=== PATIENT | female | born 1985 | race African-American/Black ===

== ENCOUNTER → 2016-12-02 | Outpatient (CLI) | payer MEDICAID ==
[~2016-12-02] MED LIST: ARIP1TAB12 PO; ASPI325T PO; BUSP5TAB PO; CALC500C16 CHEW; ENOX40P SQ; ESCI20TA PO; FERR325T PO; K-PHTAB PO; LEVE500 PO; PANT40TA3 PO; PENI500T PO; [UNRECOGNIZED DRUG - OTHER] PO
== END ==
LOC: HPND 08:47
PROVIDERS: ATTEND Obstetrics & Gynecology
DX: O99.411 Diseases of the circulatory system complicating pregnancy, first trimester (principal); Z3A.00 Weeks of gestation of pregnancy not specified
CPT/HCPCS: 76813

== ENCOUNTER 2016-12-03 13:42 | Emergency (ER) | payer MEDICAID ==
[~2016-12-03] VITALS: Ht 160 cm; Wt 61.9 kg
[~2016-12-03 13:42] MED LIST changes: -ENOX40P SQ
[2016-12-03 13:49] VITALS: BP 108/77; PULSE 79; RESP 20; TEMP 98.5; O2SAT 100
[2016-12-03] MEDS ORDERED: ENOX40P SQ (13:59)
[2016-12-03] MEDS ORDERED: SODIUM CHLORIDE 0.9% FLUSH 10 ML FLUSH IVF PRN (14:30)
[2016-12-03] MEDS ORDERED: SODIUM CHLOR 0.9% 1000 ML INJ 1,000 ML IV ONE (14:30)
--- NOTE | 2016-12-03 14:49 | PD ---
HPI Chief Complaint: Related Problem Time Seen by Provider: 14:22 Travel History International Travel<30 days: No Contact w/Intl Traveler<30days: No Traveled to known affect area: No History of Present Illness HPI Patient is a 31 year old female who is 13 weeks , presents to ER with c/ o of abdominal cramping and dizzyness. Reports that symptoms began this morning and has been persistent. Reports that she did follow up with her software maintenance engineer yesterday: Dr. Bower yesterday and did have a formal ultrasound which showed a normal IUP. Reports no vaginal bleeding or discharge. Reports no nausea or vomiting. Reports no fever/chills. No other c/o. Reports decreased fluid intake as she reports only drinking 2 glasses of water PFSH Past Medical History Hx Anticoagulant Therapy: Yes (LOVENOX) Asthma: No Autoimmune Disease: No Blood Disorders: No Bipolar Disorder: Yes Anxiety: Yes Depression: Yes Heart Rhythm Problems: No Cancer: No Cardiovascular Problems: Yes (VALVE REPLACEMENT 2013) High Cholesterol: No Chemotherapy: No Chest Pain: No Congestive Heart Failure: No COPD: No Cerebrovascular Accident: Yes (TIA) Diabetes: No Diminished Hearing: No Endocrine: No Gastrointestinal Disorders: Yes GERD: Yes Genitourinary: No Hepatitis: Yes (hep C) Immune Disorder: No Implanted Vascular Access Dvce: No Musculoskeletal: No Neurologic: Yes Psychiatric: No Reproductive: No Respiratory: No Immunizations Current: Yes Radiation Therapy: No Seizures: Yes (R/T DRUG USE) Sleep Apnea: No Thyroid Disease: No ?: : 1 Para: 1 Past Surgical History Abdominal Surgery: No AICD: No Arteriovenous Shunt: No Cardiac Surgery: Yes (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 ) Ear Surgery: No Endocrine Surgery: No Eye Surgery: No Genitourinary Surgery: No Gynecologic Surgery: No Insulin Pump: No Joint Replacement: No Neurologic Surgery: No Oral Surgery: No Pacemaker: No Thoracic Surgery: No Other Surgery: Yes (CYST REMOVED RIGHT BREAST AGE 14) Social History Alcohol Use: No (DENIES) Tobacco Use: No (FORMER) Substance Use: No (FORMER COCAINE, DILAUDID, POLYSUBSTANCE, HERION ) Allergies-Medications (Allergen,Severity, Reaction): Coded Allergies: No Known Allergies (Verified , 12/03/16) Reported Meds & Prescriptions Reported Meds & Active Scripts Active Reported Lovenox Inj (Enoxaparin Sodium) 40 Mg/0.4 Ml Syr 40 Mg SQ DAILY Review of Systems General / Constitutional: No: Fever Eyes: No: Visual changes HENT: No: Headaches Cardiovascular: No: Chest Pain or Discomfort Respiratory: No: Shortness of Breath Gastrointestinal: Positive: Abdominal Pain, No: Nausea, Vomiting Genitourinary: No: Dysuria Musculoskeletal: No: Pain Skin: No Rash Neurologic: Positive: Dizziness, No: Weakness Psychiatric: No: Depression Endocrine: No: Polydipsia Hematologic/Lymphatic: No: Easy Bruising Physical Exam Narrative GENERAL: NAD, nontoxic SKIN: Focused skin assessment warm/dry. HEAD: Atraumatic. Normocephalic. EYES: Pupils equal and round. No scleral icterus. No injection or drainage. ENT: No nasal bleeding or discharge. Mucous membranes pink and moist. NECK: Trachea midline. No JVD. CARDIOVASCULAR: Regular rate and rhythm. No murmur appreciated. RESPIRATORY: No accessory muscle use. Clear to auscultation. Breath sounds equal bilaterally. GASTROINTESTINAL: Abdomen soft, non-tender, nondistended. Patient with no abdominal tendnerness Pelvic US: bedside US: positive IUP, +FHT MUSCULOSKELETAL: No obvious deformities. No clubbing. No cyanosis. No edema. NEUROLOGICAL: Awake and alert. No obvious cranial nerve deficits. Motor grossly within normal limits. Normal speech. PSYCHIATRIC: Appropriate mood and affect; insight and judgment normal. Data Data Last Documented VS Vital Signs Date Time Temp Pulse Resp B/P Pulse Ox O2 Delivery O2 Flow Rate FiO2 12/03/16 15:41 83 20 96/58 100 12/03/16 13:49 98.5 Orders Beta Hcg (Quant/Titer) (12/03/16 14:28) Complete Blood Count With Diff (12/03/16 14:28) Comprehensive Metabolic Panel (12/03/16 14:28) Urinalysis - C+S If Indicated (12/03/16 14:28) Iv Access Insert/Monitor (12/03/16 14:28) Sodium Chloride 0.9% Flush (Ns Flush) (12/03/16 14:30) Ed Urine Pregnancytest Poc (12/03/16 14:28) Sodium Chlor 0.9% 1000 Ml Inj (Ns 1000 M (12/03/16 14:30) Orthostatic Vital Signs (12/03/16 14:29) Drug Screen, Random Urine (12/03/16 14:45) Labs Laboratory Tests Test 12/03/16 12/03/16 14:45 14:55 Urine Color YELLOW Urine Turbidity CLEAR Urine pH 6.0 Urine Specific [place] 1.011 Urine Protein NEG mg/dL Urine Glucose (UA) NEG mg/dL Urine Ketones NEG mg/dL Urine Occult Blood NEG Urine Nitrite NEG Urine Bilirubin NEG Urine Leukocyte Esterase SMALL Urine WBC 0-2 /hpf Urine Squamous Epithelial 0-5 /hpf Cells Microscopic Urinalysis Comment CULT NOT INDICATED Urine Opiates Screen NEG Urine Barbiturates Screen NEG Urine Amphetamines Screen NEG Urine Benzodiazepines Screen NEG Urine Cocaine Screen NEG Urine Cannabinoids Screen NEG White Blood Count 9.8 TH/MM3 Red Blood Count 4.67 MIL/MM3 Hemoglobin 12.0 GM/DL Hematocrit 35.2 % Mean Corpuscular Volume 75.4 FL Mean Corpuscular Hemoglobin 25.6 PG Mean Corpuscular Hemoglobin 34.0 % Concent Red Cell Distribution Width 14.2 % Platelet Count 160 TH/MM3 Mean Platelet Volume 10.6 FL Neutrophils (%) (Auto) 74.9 % Lymphocytes (%) (Auto) 18.3 % Monocytes (%) (Auto) 5.3 % Eosinophils (%) (Auto) 1.2 % Basophils (%) (Auto) 0.3 % Neutrophils # (Auto) 7.4 TH/MM3 Lymphocytes # (Auto) 1.8 TH/MM3 Monocytes # (Auto) 0.5 TH/MM3 Eosinophils # (Auto) 0.1 TH/MM3 Basophils # (Auto) 0.0 TH/MM3 CBC Comment DIFF FINAL Differential Comment Sodium Level 138 MEQ/L Potassium Level 3.6 MEQ/L Chloride Level 104 MEQ/L Carbon Dioxide Level 25.4 MEQ/L Anion Gap 9 MEQ/L Blood Urea Nitrogen 11 MG/DL Creatinine 0.64 MG/DL Estimat Glomerular Filtration 133 ML/MIN Rate Random Glucose 95 MG/DL Calcium Level 8.4 MG/DL Total Bilirubin 0.1 MG/DL Aspartate Amino Transf 15 U/L (AST/SGOT) Alanine Aminotransferase 30 U/L (ALT/SGPT) Alkaline Phosphatase 69 U/L Total Protein 7.1 GM/DL Albumin 3.2 GM/DL Human Chorionic Gonadotropin, 45[address] MIU/ML Quant [facility] Medical Decision Making Medical Screen Exam Complete: Yes Emergency Medical Condition: Yes Interpretation(s) Vital Signs Date Time Temp Pulse Resp B/P Pulse Ox O2 Delivery O2 Flow Rate FiO2 12/03/16 13:49 98.5 79 20 108/77 100 Differential Diagnosis Orthostatic hypotension, electrolyte abnormality, threatened miscarriage, appendicitis, cholecystitis Narrative Course Patient is a 31 year old female who presents to ER with c/o of dizziness and abdominal cramping. Patient reports that symptoms began this morning and has been persistent. Denies headaches. Denies n/v. Reports cramping to lower abdomen with no vaginal bleeding/discharge. She has followed up with her ob/ transition mgr yesterday and was told that she had a normal appearing IUP with good FHT. Bedside US performed, patient with good FHT. Plan to obtain lab work and administer IVF Laboratory Tests Test 12/03/16 12/03/16 14:45 14:55 Urine Color YELLOW (YELLW/STRAW) Urine Turbidity CLEAR (CLEAR) Urine pH 6.0 (5.0-8.5) Urine Specific [place] 1.011 (1.002-1.035) Urine Protein NEG mg/dL (NEG-TRACE) Urine Glucose (UA) NEG mg/dL (NEG) Urine Ketones NEG mg/dL (NEG) Urine Occult Blood NEG (NEG) Urine Nitrite NEG (NEG) Urine Bilirubin NEG (NEG) Urine Leukocyte Esterase SMALL (NEG) Urine WBC 0-2 /hpf (0-5) Urine Squamous Epithelial 0-5 /hpf (0-5) Cells Microscopic Urinalysis Comment CULT NOT INDICATED Urine Opiates Screen NEG (NEG) Urine Barbiturates Screen NEG (NEG) Urine Amphetamines Screen NEG (NEG) Urine Benzodiazepines Screen NEG (NEG) Urine Cocaine Screen NEG (NEG) Urine Cannabinoids Screen NEG (NEG) White Blood Count 9.8 TH/MM3 (4.0-11.0) Red Blood Count 4.67 MIL/MM3 (4.00-5.30) Hemoglobin 12.0 GM/DL (11.6-15.3) Hematocrit 35.2 % (35.0-46.0) Mean Corpuscular Volume 75.4 FL (80.0-100.0) Mean Corpuscular Hemoglobin 25.6 PG (27.0-34.0) Mean Corpuscular Hemoglobin 34.0 % Concent (32.0-36.0) Red Cell Distribution Width 14.2 % (11.6-17.2) Platelet Count 160 TH/MM3 (150-450) Mean Platelet Volume 10.6 FL (7.0-11.0) Neutrophils (%) (Auto) 74.9 % (16.0-70.0) Lymphocytes (%) (Auto) 18.3 % (9.0-44.0) Monocytes (%) (Auto) 5.3 % (0.0-8.0) Eosinophils (%) (Auto) 1.2 % (0.0-4.0) Basophils (%) (Auto) 0.3 % (0.0-2.0) Neutrophils # (Auto) 7.4 TH/MM3 (1.8-7.7) Lymphocytes # (Auto) 1.8 TH/MM3 (1.0-4.8) Monocytes # (Auto) 0.5 TH/MM3 (0-0.9) Eosinophils # (Auto) 0.1 TH/MM3 (0-0.4) Basophils # (Auto) 0.0 TH/MM3 (0-0.2) CBC Comment DIFF FINAL Differential Comment Sodium Level 138 MEQ/L (136-145) Potassium Level 3.6 MEQ/L (3.5-5.1) Chloride Level 104 MEQ/L (98-107) Carbon Dioxide Level 25.4 MEQ/L (21.0-32.0) Anion Gap 9 MEQ/L (5-15) Blood Urea Nitrogen 11 MG/DL (7-18) Creatinine 0.64 MG/DL (0.50-1.00) Estimat Glomerular Filtration 133 ML/MIN Rate (>89) Random Glucose 95 MG/DL (74-106) Calcium Level 8.4 MG/DL (8.5-10.1) Total Bilirubin 0.1 MG/DL (0.2-1.0) Aspartate Amino Transf 15 U/L (15-37) (AST/SGOT) Alanine Aminotransferase 30 U/L (10-53) (ALT/SGPT) Alkaline Phosphatase 69 U/L (45-117) Total Protein 7.1 GM/DL (6.4-8.2) Albumin 3.2 GM/DL (3.4-5.0) Human Chorionic Gonadotropin, 139[address] MIU/ML Quant (0-5) Patient re-evaluated. Patient reports that she is feeling much better at this time. Reviewed all labs and studies with patient.patient will follow up with her software maintenance engineer and will return to ER as needed. Understands need for pelvic rest until seen and cleared by software maintenance engineer Procedures Procedure Narrative right sided external jugular IV access Line patient was placed in Trendelenburg, patient's head was rotated to the left, right EJ was cannulated with a 20 gauge IV line without difficultly. Patient tolerated procedure well Diagnosis Primary Impression: Dizziness Additional Impressions: Abdominal pain Qualified Code: R10.32 - Left lower quadrant pain Threatened Dehydration Patient Instructions: General Instructions Additional Instructions: Pelvic rest until you are seen and cleared by your COMMUNICATION LECTURER Please drink plenty of fluids Return to ER as needed Disposition: 01 DISCHARGE HOME Condition: Stable Sherice Camarena DO Dec 03, 2016 14:49 Sherice Camarena DO Dec 03, 2016 14:49
[2016-12-03 14:56] LABS: BLOOD, URINE NEG (NEG); GLUCOSE,URINE NEG (NEG); KETONE, URINE NEG (NEG); NITRITE,URINE NEG (NEG)
[2016-12-03 14:57] VITALS: BP_SYST 107; BP_SYST 112; BP_SYST 114; BP_DIAS 67; BP_DIAS 73; BP_DIAS 76; RESP 20
[2016-12-03 15:04] LABS: BARBITURATES, URINE NEG (NEG); COCAINE, URINE NEG (NEG)
[2016-12-03 15:05] LABS: AMPHETAMINE, URINE NEG (NEG)
[2016-12-03 15:07] LABS: URINE COLOR YELLOW (YELLW/STRAW)
[2016-12-03 15:08] LABS: SQUAMOUS EPITHELIAL CELL URINE 0-5 /hpf (0-5); WBC, URINE 0-2 /hpf (0-5)
[2016-12-03 15:09] LABS: COMMENT (UR) CULT NOT INDICATED; CULTURE IF INDICATED CULT NOT INDICATED
[2016-12-03 15:13] LABS: CHLORIDE 104 MEQ/L (98-107); POTASSIUM 3.6 MEQ/L (3.5-5.1); SODIUM (NA) 138 MEQ/L (136-145)
[2016-12-03 15:16] LABS: ANION GAP 9 MEQ/L (5-15); BICARBONATE 25.4 MEQ/L (21.0-32.0)
[2016-12-03 15:17] LABS: BLOOD UREA NITROGEN 11 MG/DL (7-18)
[2016-12-03 15:19] LABS: ALT (GPT) 30 U/L (10-53); AST (GOT) 15 U/L (15-37)
[2016-12-03 15:20] LABS: GLOMERULAR FILTRATION RATE 133 ML/MIN (>89)
[2016-12-03 15:21] LABS: TOTAL BILIRUBIN ADULT 0.1 MG/DL (0.2-1.0)
[2016-12-03 15:22] LABS: ALKALINE PHOSPHATASE 69 U/L (45-117)
[2016-12-03 15:33] LABS: AUTOMATED NEUTROPHIL # 7.4 TH/MM3 (1.8-7.7); BASOPHIL % 0.3 % (0.0-2.0); EOSINOPHIL # 0.1 TH/MM3 (0-0.4); EOSINOPHIL % 1.2 % (0.0-4.0); HEMATOCRIT 35.2 % (35.0-46.0); LYMPH % 18.3 % (9.0-44.0); LYMPHOCYTE # 1.8 TH/MM3 (1.0-4.8); MEAN CELL VOLUME 75.4 FL (80.0-100.0); MEAN CORPUSCULAR HEMOGLOBIN 25.6 PG (27.0-34.0); MONO % 5.3 % (0.0-8.0); NEUT % 74.9 % (16.0-70.0); PLATELET COUNT 160 TH/MM3 (150-450); RED BLOOD COUNT 4.67 MIL/MM3 (4.00-5.30); RED CELL DISTRIBUTION WIDTH 14.2 % (11.6-17.2); WHITE BLOOD COUNT 9.8 TH/MM3 (4.0-11.0)
[2016-12-03 15:38] LABS: BETA HCG QUANT 91906 MIU/ML (0-5)
[2016-12-03 15:41] VITALS: BP 96/58; PULSE 83; RESP 20; O2SAT 100
[2016-12-03 15:41] LABS: HEMO FLAGS DIFF FINAL
== END 2016-12-03 16:12 | disposition home or self-care (01) ==
LOC: PHED 13:42
DX: O26.891 Other specified pregnancy related conditions, first trimester (principal); R42 Dizziness and giddiness; R10.32 Left lower quadrant pain; O20.0 Threatened abortion; E86.0 Dehydration; Z79.01 Long term (current) use of anticoagulants; Z86.59 Personal history of other mental and behavioral disorders; Z86.79 Personal history of other diseases of the circulatory system; Z87.19 Personal history of other diseases of the digestive system; Z86.19 Personal history of other infectious and parasitic diseases; Z86.69 Personal history of other diseases of the nervous system and sense organs; Z3A.13 13 weeks gestation of pregnancy
CPT/HCPCS: 80053; 80307; 81001; 84702; 85025; 96360; 99284; J7030

== ENCOUNTER 2017-01-20 12:15 | Emergency (ER) | payer MEDICAID ==
[~2017-01-20 12:15] MED LIST changes: -ARIP1TAB12 PO; -ASPI325T PO; -BUSP5TAB PO; -CALC500C16 CHEW; +ENOX40P SQ; -ESCI20TA PO; -FERR325T PO; -K-PHTAB PO; -LEVE500 PO; -PANT40TA3 PO; -PENI500T PO; -[UNRECOGNIZED DRUG - OTHER] PO
[2017-01-20 12:17] VITALS: BP 113/76; PULSE 94; RESP 16; TEMP 98.2; O2SAT 100
--- NOTE | 2017-01-20 13:36 | PD ---
HPI Chief Complaint Passing out Date Seen: Jan 20, 2017 Travel History International Travel<30 Days: No Contact w/Intl Traveler<30Days: No Known Affected Area: No History of Present Illness HPI at 20w 0d presents with c/o passing out at work. Patient reports becoming dizzy then passing out. She reports hitting her left side on a desk. Denies abdominal trauma. Reports movement. Denies abd/pelvic pain. Denies problems this . Patient not forthcoming with history initially. Importance of sharing history d/w patient. Para: 0 : 2 History Past Medical History Narrative Medical Endocarditis Medical History: Denies Significant Hx Past Surgical History Narrative Surgical Heart surgery/valve replacement Family History Family History: Negative Social History Alcohol Use: No Tobacco Use: No Substance Abuse: No Allergies-Medications (Allergen,Severity, Reaction): Coded Allergies: No Known Allergies (Verified , 12/03/16) Home Meds Reported Medications Enoxaparin Inj (Lovenox Inj)40 Mg/0.4 Ml Syr40 Mg SQ DAILY Ref 0 12/03/16 Physical Exam Orthostatics performed- WNL Vital Signs Date Time Temp Pulse Resp B/P Pulse Ox O2 Delivery O2 Flow Rate FiO2 01/20/17 12:17 98.2 94 16 113/76 100 Narrative GENERAL: Well-nourished, well-developed patient. SKIN: Warm and dry. HEAD: Normocephalic and atraumatic. EYES: No scleral icterus. No injection or drainage. ENT: No nasal drainage noted. Mucous membranes pink. Airway patent. NECK: Supple, trachea midline. No JVD. CARDIOVASCULAR: Regular rate and rhythm without murmurs, gallops, or rubs. RESPIRATORY: Breath sounds equal bilaterally. No accessory muscle use. BREASTS: Bilateral exam showed no masses , no retractions, no nipple discharge. ABDOMEN/GI: Abdomen soft, non-tender, bowel sounds present, no rebound, no guarding Gravid to [-] weeks size Fundal Height: [-] GENITOURINARY: External Genitalia: intact and normal in appearance BUS glands: [-] Cervix: [-] Dilatation: [-] Effacement: [-] Station: [-] Presentation: [-] Membranes: [intact or ruptured] Uterine Contractions: [no contractions] FHT's: 150s Category: [-] Baseline: [-] Reactive: [-] Variability: [-] Decels: [-] EXTREMITIES: No cyanosis or edema. BACK: Nontender without obvious deformity. No CVA tenderness. NEUROLOGICAL: Awake and alert. Motor and sensory grossly within normal limits. Five out of 5 muscle strength in all muscle groups. Normal speech. Data Data Orders Complete Blood Count With Diff (01/20/17 13:28) MDM Interpretation(s) G1 at 20w, s/p syncopal episode. Narrative Course / MDM Will obtain CBC. Close f/u with OB provider. To ED for further evaluation. All questions answered. Diagnosis Diagnosis: Primary Impression: 20 weeks gestation of Additional Impression: Syncope Disposition: 01 DISCHARGE HOME Condition: Stable Tracie Drake MD Jan 20, 2017 13:36
[2017-01-20 13:44] LABS: AUTOMATED NEUTROPHIL # 8.4 TH/MM3 (1.8-7.7); BASOPHIL % 0.4 % (0.0-2.0); EOSINOPHIL # 0.1 TH/MM3 (0-0.4); EOSINOPHIL % 0.6 % (0.0-4.0); HEMATOCRIT 34.4 % (35.0-46.0); HEMO FLAGS DIFF FINAL; LYMPH % 12.8 % (9.0-44.0); LYMPHOCYTE # 1.3 TH/MM3 (1.0-4.8); MEAN CELL VOLUME 76.4 FL (80.0-100.0); MEAN CORPUSCULAR HEMOGLOBIN 26.2 PG (27.0-34.0); MEAN CORPUSCULAR HGB CONC 34.3 % (32.0-36.0); MONO % 5.1 % (0.0-8.0); NEUT % 81.1 % (16.0-70.0); PLATELET COUNT 175 TH/MM3 (150-450); RED CELL DISTRIBUTION WIDTH 15.4 % (11.6-17.2); WHITE BLOOD COUNT 10.4 TH/MM3 (4.0-11.0)
== END 2017-01-20 14:05 | disposition home or self-care (01) ==
LOC: HOBED 12:15
DX: O26.892 Other specified pregnancy related conditions, second trimester (principal); Z3A.20 20 weeks gestation of pregnancy
CPT/HCPCS: 85025; 99283

== ENCOUNTER → 2017-01-21 | Outpatient (CLI) | payer MEDICAID | LOC: HPND 07:40 | PROVIDERS: ATTEND Obstetrics & Gynecology | DX: O35.8XX0 Maternal care for other (suspected) fetal abnormality and damage, not applicable or unspecified (principal); Z36 Encounter for antenatal screening of mother | CPT/HCPCS: 76811 ==

== ENCOUNTER → 2017-02-23 | Outpatient (CLI) | payer MEDICAID | LOC: HPND 12:49 | PROVIDERS: ATTEND Obstetrics & Gynecology | DX: O99.89 Other specified diseases and conditions complicating pregnancy, childbirth and the puerperium (principal); O98.512 Other viral diseases complicating pregnancy, second trimester; Z3A.24 24 weeks gestation of pregnancy | CPT/HCPCS: 76816 ==

== ENCOUNTER 2017-03-27 11:01 | Emergency (ER) | payer MEDICAID ==
[2017-03-27 11:45] VITALS: PULSE 102
--- NOTE | 2017-03-27 11:55 | PD ---
HPI Chief Complaint Cramping and shortness of breath Date Seen: Mar 27, 2017 Travel History International Travel<30 Days: No Contact w/Intl Traveler<30Days: No History of Present Illness HPI Patient is a 31-year-old at 293/7 weeks gestation who presents today for cramping and shortness of breath. Patient states that she felt very nauseous this morning when she woke up and had several episodes of emesis. She started feeling short of breath after the emesis and her cramps intensified. She took Zofran with minimal improvement in nausea. She denies any vaginal bleeding or discharge. No gush or leaking of fluid. Positive movement. care with Dr. Bower. 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 Obstetric History Obstetric History in 2013 at term Past Surgical History Narrative Surgical mitral valve replacement with bovine valve 01/13/14 cyst removed from right breast at age 14 Family History Family History: Negative Social History Alcohol Use: No Tobacco Use: No ( 2ppd x 10 years quit in 2013) Substance Abuse: Yes (significant history of cocaine, IVDU, oxycodone use) Allergies-Medications (Allergen,Severity, Reaction): Coded Allergies: No Known Allergies (Verified , 12/03/16) Home Meds Reported Medications Enoxaparin Inj (Lovenox Inj)40 Mg/0.4 Ml Syr40 Mg SQ DAILY Ref 0 12/03/16 Review of Systems Except as stated in HPI: all other systems reviewed are Neg General / Constitutional: No: Fever, Chills Eyes: No: Blurred Vision, Visual changes HENT: No: Headaches Cardiovascular: No: Chest Pain or Discomfort Respiratory: Short of Breath, No: Cough, Wheezing Gastrointestinal: Nausea, Vomiting, Abdominal Pain, No: Diarrhea Genitourinary: Pelvic Pain, No: Dysuria, Hematuria, Discharge, Vaginal Bleeding Musculoskeletal: No: Edema Physical Exam Narrative GENERAL: Well-nourished, well-developed patient. SKIN: Warm and dry. HEAD: Normocephalic and atraumatic. EYES: No scleral icterus. No injection or drainage. ENT: No nasal drainage noted. Mucous membranes pink. Airway patent. NECK: Supple, trachea midline. No JVD. CARDIOVASCULAR: Regular rate and rhythm without murmurs, gallops, or rubs. RESPIRATORY: Breath sounds equal bilaterally. No accessory muscle use. BREASTS: Bilateral exam showed no masses , no retractions, no nipple discharge. ABDOMEN/GI: Abdomen soft, non-tender, bowel sounds present, no rebound, no guarding Gravid to 29 weeks size GENITOURINARY: External Genitalia: intact and normal in appearance BUS glands: normal Cervix: posterior Dilatation: 0 Effacement: 0 Station: -3 Presentation: vertex Membranes: intact Uterine Contractions: none FHT's: Category: I Baseline: 140 Reactive: + Variability: moderate Decels: none EXTREMITIES: No cyanosis or edema. BACK: Nontender without obvious deformity. No CVA tenderness. NEUROLOGICAL: Awake and alert. Motor and sensory grossly within normal limits. Normal speech. Data Data Vital Signs Reviewed: Yes MDM Medical Record Reviewed: Yes Narrative Course / MDM 31 year old at 29-3/7 weeks gestation. 1. IUP- Category I tracing, reassuring. 2. Cramping- will monitor for contractions, no contractions on toco at this time. Urine dip shows mod leuk est. 3. N/V- encourage PO hydration and Zofran PRN nausea dw Dr. Jeff Addendum: No contractions on monitor Patient feeling better Will discharge home. Diagnosis Diagnosis: Primary Impression: Cramping affecting , antepartum Additional Impression: 29 weeks gestation of Disposition: DISCHARGE HOME Condition: Stable Sangita Flores MD, R3 Mar 27, 2017 11:55
== END 2017-03-27 14:27 | disposition home or self-care (01) ==
LOC: HOBED 11:01
DX: O47.03 False labor before 37 completed weeks of gestation, third trimester (principal); O36.8130 Decreased fetal movements, third trimester, not applicable or unspecified; Z3A.29 29 weeks gestation of pregnancy
CPT/HCPCS: 99284

== ENCOUNTER 2017-04-03 11:26 | Emergency (ER) | payer MEDICAID ==
--- NOTE | 2017-04-03 11:53 | PD ---
HPI Chief Complaint Decreased movement Date Seen: Apr 03, 2017 Time Seen: 11:48 Travel History International Travel<30 Days: No Contact w/Intl Traveler<30Days: No Known Affected Area: No History of Present Illness HPI 31-year-old 2 para 1 at 30+ weeks gestation who comes today with complaint of decreased movement. She states she was having some nausea and vomiting yesterday but feels better today. No other symptoms. No bleeding , discharge or contractions. Weeks Gestation: 30 Para: 1 : 2 History Past Medical History Narrative Medical History of hepatitis C History of mitral valve replacement 3 years ago- currently being followed by cardiology, she reports seeing them this week History of IV drug abuse with no use for 1 year. Past Surgical History Narrative Surgical Mitral valve replacement, breast mass excision Family History Family History: Negative Social History Alcohol Use: No Tobacco Use: No Substance Abuse: No Allergies-Medications (Allergen,Severity, Reaction): Coded Allergies: No Known Allergies (Verified , 12/03/16) Home Meds Reported Medications Enoxaparin Inj (Lovenox Inj) 40 Mg/0.4 Ml Syr, 40 MG SQ DAILY for Blood Clot Prevention, SYRINGE 0 Refills 12/03/16 Review of Systems Except as stated in HPI: all other systems reviewed are Neg Physical Exam Narrative GENERAL: Well-nourished, well-developed patient. SKIN: Warm and dry. HEAD: Normocephalic and atraumatic. EYES: No scleral icterus. No injection or drainage. ENT: No nasal drainage noted. Mucous membranes pink. Airway patent. NECK: Supple, trachea midline. No JVD. ABDOMEN/GI: Abdomen soft, non-tender, bowel sounds present, no rebound, no guarding Gravid to [-] weeks size Fundal Height: [-31] GENITOURINARY: External Genitalia: intact and normal in appearance BUS glands: [-] Cervix: [-] Dilatation: [-] Effacement: [-] Station: [-] Presentation: [-] Membranes: [intact or ruptured] Uterine Contractions: [-] FHT's: Category: [-] Baseline: [-] Reactive: [yes-] Variability: [-] Decels: [-] EXTREMITIES: No cyanosis or edema. BACK: Nontender without obvious deformity. No CVA tenderness. NEUROLOGICAL: Awake and alert. Motor and sensory grossly within normal limits. Five out of 5 muscle strength in all muscle groups. Normal speech. Data Data Vital Signs Reviewed: Yes MDM Medical Record Reviewed: Yes Narrative Course / MDM Assessment: 30 week intrauterine with decreased movement and reassuring nonstress test. Plan: Follow up for routine care. Diagnosis Diagnosis: Primary Impression: Decreased movement Additional Impression: 30 weeks gestation of Disposition: 01 DISCHARGE HOME Condition: Good Elías Valera MD Apr 03, 2017 11:53
== END 2017-04-03 12:45 | disposition home or self-care (01) ==
LOC: HOBED 11:26
DX: O36.8130 Decreased fetal movements, third trimester, not applicable or unspecified (principal); Z3A.30 30 weeks gestation of pregnancy; Z86.19 Personal history of other infectious and parasitic diseases; Z95.2 Presence of prosthetic heart valve
CPT/HCPCS: 99283

== ENCOUNTER → 2017-05-21 | Outpatient (CLI) | payer MEDICAID | LOC: HPND 07:56 | PROVIDERS: ATTEND Obstetrics & Gynecology | DX: O98.513 Other viral diseases complicating pregnancy, third trimester (principal) | CPT/HCPCS: 76816 ==

== ENCOUNTER 2017-06-02 19:21 | Inpatient (IN) | payer MEDICAID ==
[~2017-06-02] VITALS: Ht 165.1 cm; Wt 67.1 kg
[2017-06-02] VITALS (36 sets, daily range): PULSE 67–105; RESP 18; TEMP 97.8
--- NOTE | 2017-06-02 20:25 | HHI.HP ---
HPI Chief Complaint Vaginal bleeding Date Seen: Jun 02, 2017 Time Seen: 20:15 Travel History International Travel<30 Days: No Contact w/Intl Traveler<30Days: No Known Affected Area: No History of Present Illness HPI The patient is 31-year-old black female [address] Bower for care she presents with vaginal bleeding like a period tonight. She is having some crampy pain, no regular contractions, heart rate tracing is reactive she's had no bleeding like this in only a little bit of brownish show recently but no gautam red blood Weeks Gestation: 39 Para: 1 : 2 History Past Medical History Narrative Medical Hepatitis C positive Obstetric History Obstetric History One vaginal delivery Past Surgical History Narrative Surgical Valve replacement secondary to endocarditis she is not on anticoagulation therapy, she does take a full strength aspirin a day Social History Narrative Social History She has a history of substance abuse that in the past and lead to endocarditis of that she is no longer using Substance Abuse: Yes Allergies-Medications (Allergen,Severity, Reaction): Coded Allergies: No Known Allergies (Verified , 12/03/16) Home Meds Reported Medications Enoxaparin Inj (Lovenox Inj) 40 Mg/0.4 Ml Syr, 40 MG SQ DAILY for Blood Clot Prevention, SYRINGE 0 Refills 12/03/16 Review of Systems General / Constitutional: No: Fever, Weight Gain, Chills, Other Eyes: No: Diploplia, Blurred Vision, Visual changes, Pain, Photophobia HENT: No: Headaches, Vertigo, Lightheadedness Cardiovascular: No: Irregular Rhythm, Chest Pain or Discomfort, Palpitations, Tachycardia, Syncope, Varicosities, Edema, Cyanosis Respiratory: No: Cough, Short of Breath, Other Gastrointestinal: No: Nausea, Vomiting, Diarrhea Genitourinary: Vaginal Bleeding, No: Decreased Urinary Output, Oliguria Musculoskeletal: No: Limited ROM, Weakness, Cramping, Edema, Pain Skin: No Rash, No Itching, No Dryness, No Lumps, No Change in Pigmentation, No Change in Nails, No Alopecia, No Lesions Neurologic: No: Weakness, Dizziness, Syncope, Focal Abnormalities, Coordination Problem, Headache, Slurred Speech, Seizures Psychiatric: No: Depression, Suicidal Ideations, Homicidal Ideation Endocrine: No: Heat Intolerance, Cold Intolerance, Polydipsia, Polyuria, Other Physical Exam Narrative GENERAL: Well-nourished, well-developed patient. SKIN: Warm and dry. HEAD: Normocephalic and atraumatic. EYES: No scleral icterus. No injection or drainage. ENT: No nasal drainage noted. Mucous membranes pink. Airway patent. NECK: Supple, trachea midline. No JVD. CARDIOVASCULAR: Regular rate and rhythm without murmurs, gallops, or rubs. RESPIRATORY: Breath sounds equal bilaterally. No accessory muscle use. BREASTS: Bilateral exam showed no masses , no retractions, no nipple discharge. ABDOMEN/GI: Abdomen soft, non-tender, bowel sounds present, no rebound, no guarding Gravid to [-39] weeks size Fundal Height: [39-] GENITOURINARY: External Genitalia: intact and normal in appearance BUS glands: [-] Cervix: post Dilatation: [1-2-] Effacement: [thick-] Station: [high-] Presentation: [vtx by US-] Membranes: [intact ] Uterine Contractions: [occasional-] FHT's: Category: [-1] Baseline: [-133] Reactive: [-yes] Variability: [mod-] Decels: [0-] EXTREMITIES: No cyanosis or edema. BACK: Nontender without obvious deformity. No CVA tenderness. NEUROLOGICAL: Awake and alert. Motor and sensory grossly within normal limits. Five out of 5 muscle strength in all muscle groups. Normal speech. Caprini VTE Risk Assessment Caprini VTE Risk Assessment: No/Low Risk (score <= 1) Caprini Risk Assessment Model Point Value = 1 Point Value = 2 Point Value = 3 Point Value = 5 Age 41-60 Minor surgery BMI > 25 kg/m2 Swollen legs Varicose veins or History of unexplained or recurrent spontaneous Oral contraceptives or hormone replacement Sepsis (< 1 month) Serious lung disease, including pneumonia (< 1 month) Abnormal pulmonary function Acute myocardial infarction Congestive heart failure (< 1 month) History of inflammatory bowel disease Medical patient at bed rest Age 61-74 Arthroscopic surgery Major open surgery (> 45 min) Laparoscopic surgery (> 45 min) Malignancy Confined to bed (> 72 hours) Immobilizing plaster cast Central venous access Age >= 75 History of VTE Family history of VTE Factor V Leiden Prothrombin [id number] Lupus anticoagulant Anticardiolipin antibodies Elevated serum homocysteine Heparin-induced thrombocytopenia Other congenital or acquired thrombophilia Stroke (< 1 month) Elective arthroplasty Hip, pelvis, or leg fracture Acute spinal cord injury (< 1 month) Prophylaxis Regimen Total Risk Factor Score Risk Level Prophylaxis Regimen 0-1 Low Early ambulation 2 Moderate Order ONE of the following: *Sequential Compression Device (SCD) *Heparin 5000 units SQ BID 3-4 Higher Order ONE of the following medications: *Heparin 5000 units SQ TID *Enoxaparin/Lovenox 40 mg SQ daily (WT < 150 kg, CrCl > 30 mL/min) *Enoxaparin/Lovenox 30 mg SQ daily (WT < 150 kg, CrCl > 10-29 mL/min) *Enoxaparin/Lovenox 30 mg SQ BID (WT < 150 kg, CrCl > 30 mL/min) AND/OR *Sequential Compression Device (SCD) 5 or more Highest Order ONE of the following medications: *Heparin 5000 units SQ TID (Preferred with Epidurals) *Enoxaparin/Lovenox 40 mg SQ daily (WT < 150 kg, CrCl > 30 mL/min) *Enoxaparin/Lovenox 30 mg SQ daily (WT < 150 kg, CrCl > 10-29 mL/min) *Enoxaparin/Lovenox 30 mg SQ BID (WT < 150 kg, CrCl > 30 mL/min) AND *Sequential Compression Device (SCD) Assessment/Plan Assessment and Plan The patient is 31-year-old black female at 39 weeks presents planning of vaginal bleeding and some abdominal cramps today. She has bleeding as being like a period and on exam there is dark blood in the vagina not a lot but enough that the worrisome and also some blood staining in the vagina and on the labia. Cervix is 1-2 thick and high vertex by ultrasound and ultrasound-guided bedside was ruled out previa fundal placenta grade 3. The patient does take a full strength aspirin a day due to her history of mitral valve replacement Impression- third trimester bleeding with previa rule out-at 39 weeks Patient with history of mitral valve replacement and daily aspirin therapy Plan to admit the patient observation. Check abruption labs and observe for any further significant bleeding and if that were to be the case would consider delivery-we'll discuss case with Dr. Bower her OB doctor Trae Jeff II, MD Jun 02, 2017 20:25
[2017-06-02] MEDS ORDERED: ONDANSETRON HCL 4 MG/2 ML VIAL IV PUSH PRN (20:30)
[2017-06-02] MEDS ORDERED: SODIUM CHLORIDE 0.9% FLUSH 10 ML FLUSH IV FLUSH PRN (20:30)
[2017-06-02] MEDS: SODIUM CHLORIDE 0.9% FLUSH 10 ML FLUSH IV FLUSH SCH (21:00)
[2017-06-02 22:16] LABS: BLOOD, URINE LARGE (NEG); COMMENT (UR) CULTURE INDICATED; CULTURE IF INDICATED CULTURE INDICATED; GLUCOSE,URINE NEG (NEG); KETONE, URINE NEG (NEG); NITRITE,URINE NEG (NEG); PH, URINE 6.5 (5.0-8.5); SQUAMOUS EPITHELIAL CELL URINE 1 /hpf (0-5); URINE COLOR YELLOW (YELLW/STRAW)
[2017-06-02 22:21] LABS: AUTOMATED NEUTROPHIL # 8.2 TH/MM3 (1.8-7.7); BASOPHIL % 0.3 % (0.0-2.0); EOSINOPHIL # 0.1 TH/MM3 (0-0.4); EOSINOPHIL % 0.6 % (0.0-4.0); HEMATOCRIT 35.4 % (35.0-46.0); HEMO FLAGS DIFF FINAL; LYMPH % 14.2 % (9.0-44.0); LYMPHOCYTE # 1.4 TH/MM3 (1.0-4.8); MEAN CELL VOLUME 78.3 FL (80.0-100.0); MEAN CORPUSCULAR HEMOGLOBIN 25.8 PG (27.0-34.0); NEUT % 79.9 % (16.0-70.0); PLATELET COUNT 207 TH/MM3 (150-450); RED BLOOD COUNT 4.53 MIL/MM3 (4.00-5.30); RED CELL DISTRIBUTION WIDTH 13.9 % (11.6-17.2); WHITE BLOOD COUNT 10.2 TH/MM3 (4.0-11.0)
[2017-06-02 22:50] LABS: ALT (GPT) 29 U/L (10-53); ANION GAP 8 MEQ/L (5-15); AST (GOT) 17 U/L (15-37); BICARBONATE 22.6 MEQ/L (21.0-32.0); BLOOD UREA NITROGEN 8 MG/DL (7-18); CHLORIDE 105 MEQ/L (98-107); GLOMERULAR FILTRATION RATE 130 ML/MIN (>89); POTASSIUM 3.6 MEQ/L (3.5-5.1); SODIUM (NA) 136 MEQ/L (136-145)
[2017-06-02 22:52] LABS: ALKALINE PHOSPHATASE 212 U/L (45-117); TOTAL BILIRUBIN ADULT 0.2 MG/DL (0.2-1.0)
[2017-06-03] VITALS (226 sets, daily range): BP systolic 87–125; BP diastolic 42–90; PULSE 42–160; RESP 16–20; TEMP 97.4–98.4
[2017-06-03] MEDS: SODIUM CHLORIDE 0.9% FLUSH 10 ML FLUSH IV FLUSH SCH (09:00)
[2017-06-03] MEDS ORDERED: LACTATED RINGER'S 1000 ML INJ 1,000 ML IV PRN (09:18)
[2017-06-03] MEDS ORDERED: AMPICILLIN INJ 2,000 MG in SODIUM CHLORIDE 0.9% INJ 100 ML IV ONE ×2 (09:30→16:30)
[2017-06-03] MEDS ORDERED: GENTAMICIN INJ 80 MG in SODIUM CHLORIDE 0.9% INJ 100 ML IV ONE (09:30)
[2017-06-03] MEDS ORDERED: LIDOCAINE HCL 1% 50 ML VIAL I-DERMAL PRN (09:30)
[2017-06-03] MEDS ORDERED: ONDANSETRON HCL 4 MG/2 ML VIAL IV PUSH PRN (09:30)
[2017-06-03] MEDS ORDERED: SODIUM CHLORID 0.9% 500 ML INJ 500 ML IV PRN (09:30)
[2017-06-03] MEDS ORDERED: CITRIC ACID-SODIUM CITRATE LIQ 30 ML UDC PO SCH (09:30)
[2017-06-03] MEDS ORDERED: LIDOCAINE HCL 1% 50 ML VIAL INFIL PRN (09:30)
[2017-06-03] MEDS ORDERED: OXYTOCIN 30 UNITS-500ML PREMIX 500 ML IV ONE ×2 (09:30→20:00)
[2017-06-03] MEDS ORDERED: MINERAL OIL 10 ML VIAL TOPICAL PRN (09:30)
[2017-06-03] MEDS ORDERED: OXYTOCIN 30 UNITS-500ML PREMIX 500 ML IV SCH ×2 (09:30→20:00)
[2017-06-03] MEDS ORDERED: SODIUM CHLOR 0.9% 1000 ML INJ 1,000 ML IV PRN (09:38)
[2017-06-03] MEDS ORDERED: GENTAMICIN 80 MG PREMIX 100 ML IV ONE (10:00)
[2017-06-03] MEDS: LACTATED RINGER'S 1000 ML INJ 1,000 ML IV SCH ×2 (10:11→16:41)
--- NOTE | 2017-06-03 11:15 | PD.LABORPN ---
Subjective Subjective pt continues to have staining overnight. denies heavy vaginal bleeding since admission. denies trauma. +FM, rare contractions. Objective Vital Signs Vital Signs Date Time Temp Pulse Resp B/P (MAP) Pulse Ox O2 Delivery O2 Flow Rate FiO2 06/03/17 10:45 80 06/03/17 10:40 77 06/03/17 10:35 83 06/03/17 10:30 78 06/03/17 10:25 77 06/03/17 10:20 87 06/03/17 10:15 77 06/03/17 10:10 78 06/03/17 10:05 84 06/03/17 10:00 76 06/03/17 09:55 80 06/03/17 09:50 73 06/03/17 09:45 76 06/03/17 09:40 76 06/03/17 09:35 93 06/03/17 09:30 86 06/03/17 09:25 91 06/03/17 09:15 93 06/03/17 09:10 78 06/03/17 09:05 77 06/03/17 09:00 84 06/03/17 08:55 83 06/03/17 08:50 83 06/03/17 08:45 89 06/03/17 08:40 72 06/03/17 08:35 72 06/03/17 08:30 80 06/03/17 08:25 72 06/03/17 08:20 73 06/03/17 08:15 67 06/03/17 08:10 72 06/03/17 08:05 71 06/03/17 08:00 69 06/03/17 07:55 75 06/03/17 07:50 74 06/03/17 07:45 67 06/03/17 07:43 18 06/03/17 07:42 97.4 67 112/69 (83) 06/03/17 07:40 71 06/03/17 07:35 70 06/03/17 07:30 67 06/03/17 07:25 55 06/03/17 07:15 69 06/03/17 07:10 74 06/03/17 07:05 64 06/03/17 07:00 67 06/03/17 06:55 66 06/03/17 06:50 64 06/03/17 06:40 67 06/03/17 06:35 64 06/03/17 06:30 69 06/03/17 06:09 16 06/03/17 06:05 65 06/03/17 06:00 63 06/03/17 05:55 66 06/03/17 05:50 63 06/03/17 05:47 62 116/76 (89) 06/03/17 05:45 61 06/03/17 05:40 60 06/03/17 05:30 42 06/03/17 05:25 46 06/03/17 05:20 56 06/03/17 05:15 64 06/03/17 05:10 69 06/03/17 05:05 65 06/03/17 05:00 69 06/03/17 04:55 66 06/03/17 04:50 69 06/03/17 04:45 71 06/03/17 04:40 66 06/03/17 04:35 65 06/03/17 04:30 68 06/03/17 04:25 60 06/03/17 04:20 67 06/03/17 04:15 74 06/03/17 04:10 72 06/03/17 04:05 68 06/03/17 04:00 66 06/03/17 03:55 69 06/03/17 03:50 64 06/03/17 03:45 66 06/03/17 03:40 68 06/03/17 03:35 74 06/03/17 03:30 67 06/03/17 03:29 98.1 16 06/03/17 03:26 68 118/73 (88) 06/03/17 03:25 47 06/03/17 03:10 49 Objective Pelvic Exam: Cervix: [-] Dilatation: [-] Effacement: [-] Station: [-] Presentation: [-] Membranes: [intact or ruptured] Uterine Contractions: [-] FHT's: Category: [-] Baseline: [-] Reactive: [-] Variability: [-] Decels: [-] Weeks Gestation: 39 Gest Age Assessed Date: Jun 02, 2017 Gest Age Assessed Time: 19:00 Pt started active labor?: No Medical induction of labor?: Yes Medical induction start date: Jun 03, 2017 Medical induction start time: 09:30 Artificial rupture of membrane: No Assessment/Plan Problem List: (1) Vaginal bleeding in ICD Codes: O46.90 - Antepartum hemorrhage, unspecified, unspecified trimester Plan: will induce labor given pt is term. no symptoms of abruption. (2) Hepatitis C ICD Codes: B19.20 - Hepatitis C virus infection Status: Chronic Plan: stable (3) S/P MVR (mitral valve replacement) ICD Codes: Z95.4 - S/P MVR (mitral valve replacement) Status: Acute Plan: will give amp and gent now and repeat in 6 hrs Nona Bower MD Jun 03, 2017 11:15
[2017-06-03] MEDS ORDERED: ePHEDrine/NS 25 MG/5 ML SYR ONE ×2 (13:55→15:43)
[2017-06-03] MEDS ORDERED: fentaNYL 2MCG-BUPIV 0.125% INJ 100 ML ONE (15:43)
[2017-06-03] MEDS ORDERED: DIPHTH/TETANUS/ACEL PERTUSSIS (BOOSTER) 0.5 ML VIAL/PFS IM ONE (16:00)
[2017-06-03] MEDS ORDERED: MEASLES, MUMPS, RUBELLA VACCINE 0.5 ML VIAL SQ ONE (16:00)
[2017-06-03] MEDS ORDERED: ePHEDrine/NS 25 MG/5 ML SYR IV PUSH PRN (18:15)
[2017-06-03] MEDS ORDERED: fentaNYL 2MCG-BUPIV 0.125% 100 ML EPIDURAL SCH (19:00)
[2017-06-03] MEDS ORDERED: DO NOT ADMINISTER ANTICOAGULANTS PRN (19:00)
[2017-06-03] MEDS ORDERED: NO SYSTEM NARCOTICS PRN (19:00)
--- NOTE | 2017-06-03 19:57 | PD.OB.DELI ---
Weeks gestation: 39 Gest age assessed date: Jun 02, 2017 Gest age assessed time: 19:00 Pt started active labor?: Yes Active labor start date: Jun 03, 2017 Active labor start time: 14:00 Medical induction of labor?: Yes Medical induction start date: Jun 03, 2017 Medical induction start time: 09:30 Artificial rupture of membrane: No Anesthesia: Epidural Episiotomy: None Vaginal Delivery: Normal Presentation: Occiput anterior Nuchal Cord: None Delayed cord clamping (45 sec): Yes Infant: Female, Single Delivery date: Jun 03, 2017 Delivery time: 19:35 One Minute : 8 Five Minute : 9 Weight: 5-13 Placenta: Spontaneous delivery, Intact, 3 vessel cord Laceration: Vaginal laceration, 1 deg (repaired 2 small lacerations at 3 and 7 o clock, repaired with 2-0 chromic) Nona Bower MD Jun 03, 2017 19:57
[2017-06-03] MEDS ORDERED: BENZOCAINE 20% TOPICAL SPRAY 60 ML CAN TOPICAL PRN (20:00)
[2017-06-03] MEDS ORDERED: ONDANSETRON ODT 4 MG TAB PO PRN (20:00)
[2017-06-03] MEDS ORDERED: DOCUSATE SODIUM 50 MG/SENNA 8.6 MG TAB PO PRN (20:00)
[2017-06-03] MEDS ORDERED: SODIUM CHLORIDE 0.9% FLUSH 10 ML FLUSH IV FLUSH PRN (20:00)
[2017-06-03] MEDS ORDERED: ZOLPIDEM TARTRATE 5 MG TAB PO PRN (20:00)
[2017-06-03] MEDS ORDERED: ALUMINUM/MAGNESIUM/SIMETH 30 ML CUP PO PRN (20:00)
[2017-06-03] MEDS ORDERED: WITCH HAZEL 50%/GLYCERIN 12.5% 40 PAD JAR TOPICAL PRN (20:00)
[2017-06-03] MEDS ORDERED: ACETAMINOPHEN 325 MG TAB PO PRN (20:00)
[2017-06-03] MEDS ORDERED: SODIUM CHLORIDE 0.9% FLUSH 10 ML FLUSH IV FLUSH SCH (21:00)
[2017-06-03] MEDS: IBUPROFEN 600 MG TAB PO PRN (23:22)
[2017-06-04] MEDS: IBUPROFEN 600 MG TAB PO PRN ×4 (05:06→20:12)
[2017-06-04] MEDS: oxyCODONE/ACETAMINOPHEN 5 MG/325 MG TAB PO PRN ×4 (05:06→20:13)
[2017-06-04 08:39] VITALS: BP 109/69; PULSE 74; RESP 18; TEMP 97.6
[2017-06-05] MEDS: IBUPROFEN 600 MG TAB PO PRN ×2 (01:24→08:09)
[2017-06-05] MEDS: oxyCODONE/ACETAMINOPHEN 5 MG/325 MG TAB PO PRN ×2 (01:24→08:06)
[2017-06-05] MEDS ORDERED: IBUP-232 PO (09:16)
--- NOTE | 2017-06-05 09:17 | HHI.DCPOC ---
Discharge Care Plan Diagnosis: (1) Vaginal bleeding in (2) S/P MVR (mitral valve replacement) (3) Hepatitis C Your Health Problems Are: Vaginal delivery Report Symptoms to Your Doctor -Temperature above 100.5 degrees -Redness, of incision or excessive or foul smelling drainage -Unusual pain or calf pain -Increased vaginal bleeding -Painful or difficulty urinating -Feelings of extreme sadness or anxiety after 2 weeks Goals to Promote Your Health * To prevent worsening of your condition and complications * To maintain your health at the optimal level Directions to Meet Your Goals Take your medications as prescribed Follow your dietary instruction Follow activity as directed Ensure plenty of rest for recovery Drink fluids for hydration Keep your appointments as scheduled Take your immunizations and boosters as scheduled If your symptoms worsen call your PCP, if no PCP go to Urgent Care Center or Emergency Room Smoking is Dangerous to Your Health. Avoid second hand smoke Call the 24-hour crisis hotline for domestic abuse at Nona Bower MD Jun 05, 2017 09:16
== END 2017-06-05 12:43 | disposition home or self-care (01) | DRG 774 ==
LOC: HOBED 19:21 → H2EA 20:30 → OBSVTOIN 06-03 09:23 → H2EA 06-03 09:39 → H1EA 06-03 22:44
PROVIDERS: ADMIT Obstetrics & Gynecology; ATTEND Obstetrics & Gynecology
PROC: 10E0XZZ Delivery of Products of Conception, External Approach (ICD-10-PCS; principal; 2017-06-03)
PROC: 0HQ9XZZ Repair Perineum Skin, External Approach (ICD-10-PCS; 2017-06-03)
PROC: 3E0P3VZ Introduction of Hormone into Female Reproductive, Percutaneous Approach (ICD-10-PCS; 2017-06-03)
PROC: 3E0R3BZ Introduction of Anesthetic Agent into Spinal Canal, Percutaneous Approach (ICD-10-PCS; 2017-06-03)
PROC: 00HU33Z Insertion of Infusion Device into Spinal Canal, Percutaneous Approach (ICD-10-PCS; 2017-06-03)
DX: O46.93 Antepartum hemorrhage, unspecified, third trimester (principal); O98.42 Viral hepatitis complicating childbirth; B19.20 Unspecified viral hepatitis C without hepatic coma; O70.0 First degree perineal laceration during delivery; Z95.2 Presence of prosthetic heart valve; Z79.82 Long term (current) use of aspirin; Z3A.39 39 weeks gestation of pregnancy; Z37.0 Single live birth
CPT/HCPCS: 76937; 80053; 80307; 81001; 85025; 85384; 85610; 85730; 87086; J0290; J1580; J2590; J3010; J7120

== ENCOUNTER 2017-08-29 15:17 | Emergency (ER) | payer MEDICAID ==
[~2017-08-29] VITALS: Ht 165.1 cm; Wt 58.0 kg
[~2017-08-29 15:17] MED LIST changes: -ENOX40P SQ; +IBUP-232 PO
[2017-08-29 15:21] VITALS: BP 132/90; PULSE 91; RESP 16; TEMP 98.2; O2SAT 100
[2017-08-29] MEDS ORDERED: ASPI-183 PO (15:34)
[2017-08-29] MEDS ORDERED: CEPH-460 PO (16:01)
[2017-08-29] MEDS ORDERED: BACT800T5 PO (16:01)
--- NOTE | 2017-08-29 16:02 | PD ---
HPI Chief Complaint: Injury Time Seen by Provider: 15:36 Travel History International Travel<30 days: No Contact w/Intl Traveler<30days: No Traveled to known affect area: No History of Present Illness HPI 32 -year-old female here with pain, swelling, redness to the left foot times one day. Patient reports that she attempted to inject IV Dilaudid into the left foot 3-4 days ago when she relapsed. She reports redness, swelling and pain today. She denies fever or chills. Symptom severity is moderate. Aggravated by palpation of the area. Slightly relieved with ice. PFSH Past Medical History Hx Anticoagulant Therapy: Yes (LOVENOX) Asthma: No Autoimmune Disease: No Blood Disorders: No Bipolar Disorder: Yes Anxiety: Yes Depression: Yes Heart Rhythm Problems: No Cancer: No Cardiovascular Problems: Yes (VALVE REPLACEMENT 2013) High Cholesterol: No Chemotherapy: No Chest Pain: No Congestive Heart Failure: No COPD: No Cerebrovascular Accident: Yes (TIA) Diabetes: No Diminished Hearing: No Endocrine: No Gastrointestinal Disorders: Yes GERD: Yes Genitourinary: No Hepatitis: Yes (hep C) Immune Disorder: No Implanted Vascular Access Dvce: No Musculoskeletal: No Neurologic: Yes Psychiatric: No Reproductive: No Respiratory: No Immunizations Current: Yes Radiation Therapy: No Seizures: Yes (R/T DRUG USE) Sleep Apnea: No Thyroid Disease: No Tetanus Vaccination: < 5 Years Influenza Vaccination: No ?: Not LMP: 08/19/2017 : 1 Para: 1 Past Surgical History Abdominal Surgery: No AICD: No Arteriovenous Shunt: No Cardiac Surgery: Yes (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 ) Ear Surgery: No Endocrine Surgery: No Eye Surgery: No Genitourinary Surgery: No Gynecologic Surgery: No Insulin Pump: No Joint Replacement: No Neurologic Surgery: No Oral Surgery: No Pacemaker: No Thoracic Surgery: No Other Surgery: Yes (CYST REMOVED RIGHT BREAST AGE 14) Social History Alcohol Use: No Tobacco Use: No Substance Use: Yes (FORMER COCAINE, DILAUDID, POLYSUBSTANCE, HERION ) Allergies-Medications (Allergen,Severity, Reaction): Coded Allergies: No Known Allergies (Verified Adverse Reaction, Unknown, 08/29/17) Reported Meds & Prescriptions Reported Meds & Active Scripts Active Reported Aspirin 325 Mg Tab 325 Mg PO DAILY Review of Systems Except as stated in HPI: all other systems reviewed are Neg General / Constitutional: No: Fever Eyes: No: Visual changes HENT: No: Headaches Cardiovascular: No: Chest Pain or Discomfort Respiratory: No: Shortness of Breath Gastrointestinal: No: Abdominal Pain Genitourinary: No: Dysuria Musculoskeletal: No: Pain Physical Exam Narrative GENERAL: Alert and well-appearing 32-year-old female. SKIN: Warm and dry. Erythema noted to the left foot dorsal aspect. No induration, fluctuance, drainage. HEAD: Normocephalic. EYES: No scleral icterus. No injection or drainage. NECK: Supple, trachea midline. CARDIOVASCULAR: Regular rate and rhythm RESPIRATORY: Breath sounds equal bilaterally. No accessory muscle use. MUSCULOSKELETAL: No cyanosis. Left foot mild/moderate swelling with erythema isolated to the lateral/dorsal aspect. 2+ dorsal pedis pulse. Normal sensation. Brisk cap refill. Data Data Last Documented VS Vital Signs Date Time Temp Pulse Resp B/P (MAP) Pulse Ox O2 Delivery O2 Flow Rate FiO2 08/29/17 15:21 98.2 91 16 132/90 (104) 100 MDM Medical Decision Making Medical Screen Exam Complete: Yes Emergency Medical Condition: Yes Differential Diagnosis Abscess, cellulitis, deep space infection Narrative Course This is a 32-year-old female who has a history of IV drug abuse and has been in remission for greater than 1 year. 4 days ago she relapsed and injected IV Dilaudid into the left foot. Today she noticed redness and swelling area and she denies fever or chills. She is nontoxic-appearing. Her exam is consistent with cellulitis possible early abscess formation. She will be prescribed Keflex and Bactrim with close follow-up in 1-2 days. She agrees to this plan. Diagnosis Primary Impression: Cellulitis of left foot Referrals: Primary Care Physician Departure Forms: Tests/Procedures, Work Release Enter return to work date: Aug 29, 2017 Special Instructions: No prolonged standing. Needs to elevate the left foot for the next 3 days. Additional Instructions: Antibiotics as prescribed. Follow-up with your doctor in 1-2 days for recheck. Return prior he developed fever, chills, increasing pain or worsening symptoms. Scripts Sulfamethoxazole-Trimethoprim (Bactrim DS) 800-160 Mg Tab 1 TAB PO BID for Infection, #20 TAB 0 Refills Prov: Angelita Ramsey 08/29/17 Cephalexin (Keflex) 500 Mg Capsule 500 MG PO Q6H for Infection for 10 Days, #40 CAP 0 Refills Prov: Angelita Ramsey 08/29/17 Disposition: 01 DISCHARGE HOME Condition: Stable Angelita Ramsey Aug 29, 2017 16:02
== END 2017-08-29 16:19 | disposition home or self-care (01) ==
LOC: PHEFT 15:17
DX: L03.116 Cellulitis of left lower limb (principal); F31.9 Bipolar disorder, unspecified; F41.9 Anxiety disorder, unspecified; B19.20 Unspecified viral hepatitis C without hepatic coma; K21.9 Gastro-esophageal reflux disease without esophagitis; Z95.2 Presence of prosthetic heart valve; Z86.73 Personal history of transient ischemic attack (TIA), and cerebral infarction without residual deficits; Z79.82 Long term (current) use of aspirin
CPT/HCPCS: 99284

== ENCOUNTER 2017-09-04 21:06 | Emergency (ER) | payer MEDICAID ==
[~2017-09-04] VITALS: Ht 165.1 cm; Wt 56.0 kg
[~2017-09-04 21:06] MED LIST changes: +ASPI-183 PO; +BACT800T5 PO; +CEPH-460 PO; -IBUP-232 PO
[2017-09-04 21:10] VITALS: BP 146/84; PULSE 98; RESP 16; TEMP 98.2; O2SAT 98
--- NOTE | 2017-09-04 21:34 | PD ---
HPI Chief Complaint: Edema Time Seen by Provider: 21:33 Travel History International Travel<30 days: No Contact w/Intl Traveler<30days: No Traveled to known affect area: No History of Present Illness HPI 32-year-old female came to the emergency room with history of left ankle swelling and tender spot. Patient is an IV drug abuser and says that she used a foot vein to inject. This was about 10 days ago. This caused redness and swelling and she was in the emergency room then. She was started on Bactrim and Keflex. She has stents x-rays of the course. She says that at this point this one spot on her ankle is tender to touch and preventing her to flex her ankle because of the pain. No history of fever or chills. Vital signs were stable. Patient has history of bacterial endocarditis in the past from IV drug abuse. She has history of MRSA. [facility] Past Medical History Narrative Medical List of her past medical, surgical, social and family history is reviewed from the nursing note. Hx Anticoagulant Therapy: Yes (LOVENOX) Asthma: No Autoimmune Disease: No Blood Disorders: No Bipolar Disorder: Yes Anxiety: Yes Depression: Yes Heart Rhythm Problems: No Cancer: No Cardiovascular Problems: Yes (Endocarditis) High Cholesterol: No Chemotherapy: No Chest Pain: No Congestive Heart Failure: No COPD: No Cerebrovascular Accident: Yes (TIA) Diabetes: No Diminished Hearing: No Endocrine: No Gastrointestinal Disorders: Yes GERD: Yes Genitourinary: No Hepatitis: Yes (hep C) Immune Disorder: No Implanted Vascular Access Dvce: No Musculoskeletal: No Neurologic: Yes Psychiatric: No Reproductive: No Respiratory: No Immunizations Current: Yes Radiation Therapy: No Seizures: Yes (R/T DRUG USE) Sleep Apnea: No Thyroid Disease: No Tetanus Vaccination: < 5 Years Influenza Vaccination: No ?: Not LMP: 08/14/2017 : 1 Para: 1 Past Surgical History Abdominal Surgery: No AICD: No Arteriovenous Shunt: No Cardiac Surgery: Yes (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 ) Ear Surgery: No Endocrine Surgery: No Eye Surgery: No Genitourinary Surgery: No Gynecologic Surgery: No Insulin Pump: No Joint Replacement: No Neurologic Surgery: No Oral Surgery: No Pacemaker: No Thoracic Surgery: No Other Surgery: Yes (CYST REMOVED RIGHT BREAST AGE 14) Social History Alcohol Use: Yes (OCC) Tobacco Use: No Substance Use: Yes (FORMER COCAINE, DILAUDID, POLYSUBSTANCE, HERION ) Allergies-Medications (Allergen,Severity, Reaction): Coded Allergies: No Known Allergies (Verified Adverse Reaction, Unknown, 09/04/17) Comments No known drug allergies. Reported Meds & Prescriptions Reported Meds & Active Scripts Active Bactrim DS (Sulfamethoxazole-Trimethoprim) 800-160 Mg Tab 1 Tab PO BID Keflex (Cephalexin) 500 Mg Capsule 500 Mg PO Q6H 10 Days Reported Aspirin 325 Mg Tab 325 Mg PO DAILY Narrative Medication List of her home medications reviewed from the nursing note. Review of Systems Except as stated in HPI: all other systems reviewed are Neg Physical Exam Narrative GENERAL: Awake, alert, mild distress SKIN: Focused skin assessment warm/dry. Left foot is swollen ankle and distal. There is a tender fluctuant swelling that's 2 cm in diameter just distal to the lateral malleolus. There is no redness or warmth of the skin HEAD: Atraumatic. Normocephalic. EYES: Pupils equal and round. No scleral icterus. No injection or drainage. ENT: No nasal bleeding or discharge. Mucous membranes pink and moist. NECK: Trachea midline. No JVD. CARDIOVASCULAR: Regular rate and rhythm. No murmur appreciated. RESPIRATORY: No accessory muscle use. Clear to auscultation. Breath sounds equal bilaterally. GASTROINTESTINAL: Abdomen soft, non-tender, nondistended. Hepatic and splenic margins not palpable. MUSCULOSKELETAL: No obvious deformities. No clubbing. No cyanosis. No edema. NEUROLOGICAL: Awake and alert. No obvious cranial nerve deficits. Motor grossly within normal limits. Normal speech. PSYCHIATRIC: Appropriate mood and affect; insight and judgment normal. Data Data Last Documented VS Vital Signs Date Time Temp Pulse Resp B/P (MAP) Pulse Ox O2 Delivery O2 Flow Rate FiO2 09/05/17 00:11 09/04/17 23:47 88 16 100 Room Air 09/04/17 21:10 98.2 Orders Orders Complete Blood Count With Diff (09/04/17 21:55) Basic Metabolic Panel (Bmp) (09/04/17 21:55) Westergren Sedimentation Rate (09/04/17 21:55) Ct Ankle W Iv Contrast (09/04/17 ) Beta Hcg (Quant/Titer) (09/04/17 21:55) ^ Saline Lock (09/04/17 21:55) Iohexol 350 Inj (Omnipaque 350 Inj) (09/04/17 23:15) Labs Laboratory Tests Test 09/04/17 22:35 White Blood Count 5.9 TH/MM3 Red Blood Count 4.88 MIL/MM3 Hemoglobin 11.9 GM/DL Hematocrit 36.3 % Mean Corpuscular Volume 74.4 FL Mean Corpuscular Hemoglobin 24.3 PG Mean Corpuscular Hemoglobin Concent 32.6 % Red Cell Distribution Width 14.3 % Platelet Count 301 TH/MM3 Mean Platelet Volume 8.8 FL Neutrophils (%) (Auto) 68.1 % Lymphocytes (%) (Auto) 25.6 % Monocytes (%) (Auto) 4.9 % Eosinophils (%) (Auto) 0.7 % Basophils (%) (Auto) 0.7 % Neutrophils # (Auto) 4.1 TH/MM3 Lymphocytes # (Auto) 1.5 TH/MM3 Monocytes # (Auto) 0.3 TH/MM3 Eosinophils # (Auto) 0.0 TH/MM3 Basophils # (Auto) 0.0 TH/MM3 CBC Comment DIFF FINAL Differential Comment Erythrocyte Sedimentation Rate 38 mm/hr Blood Urea Nitrogen 6 MG/DL Creatinine 0.98 MG/DL Random Glucose 87 MG/DL Calcium Level 9.1 MG/DL Sodium Level 136 MEQ/L Potassium Level 3.7 MEQ/L Chloride Level 102 MEQ/L Carbon Dioxide Level 26.5 MEQ/L Anion Gap 8 MEQ/L Estimat Glomerular Filtration Rate 81 ML/MIN Human Chorionic Gonadotropin, Quant LESS THAN 1 MIU/ML MDM Medical Decision Making Medical Screen Exam Complete: Yes Emergency Medical Condition: Yes Medical Record Reviewed: Yes Differential Diagnosis Abscess, septic arthritis, cellulitis Narrative Course 11:24 PM blood test results are back. Sedimentation rate is elevated but rest of the test results are within normal limit. Early waiting for the CT scan to be done and resulted. I'm interested to see if the fluid collection is connected to the ankle joint. I had done a bedside ultrasound to look at the fluid collection. Please refer to my procedure note. 12:06 AM I discussed the CAT scan finding with the patient including the fluid collection, tendinitis and this related to further significant infection from the IV drug abuse. In my opinion she should be admitted to get IV antibiotic and seen by podiatry since just I&D in the ER would not be the standard of care. Patient however said that she wants to go home since she has a 3-month- old at home that she needs to take care of and currently she has a 3-year-old with her. She understands the risk of leaving. She is in full capacity to make decisions for herself. Patient will leave AGAINST MEDICAL ADVICE. Procedures Procedure Narrative Emergency department soft-tissue/musculoskeletal ultrasound was performed with patient consent. Linear probe was used in the transverse and sagittal views in the area of interest without evidence of soft-tissue foreign bodies but there is a fluid collection noticed. EKG Prior to Arrival: No Diagnosis Primary Impression: Foot abscess, left Additional Impression: Tendinitis Disposition: DISCH W/HOME HEALTH SERVICE Condition: Serious Rayray Tabor MD Sep 04, 2017 21:34
[2017-09-04 22:38] LABS: AUTOMATED NEUTROPHIL # 4.1 TH/MM3 (1.8-7.7); BASOPHIL % 0.7 % (0.0-2.0); EOSINOPHIL % 0.7 % (0.0-4.0); HEMATOCRIT 36.3 % (35.0-46.0); HEMOGLOBIN 11.9 GM/DL (11.6-15.3); LYMPH % 25.6 % (9.0-44.0); LYMPHOCYTE # 1.5 TH/MM3 (1.0-4.8); MEAN CELL VOLUME 74.4 FL (80.0-100.0); MEAN CORPUSCULAR HEMOGLOBIN 24.3 PG (27.0-34.0); MEAN CORPUSCULAR HGB CONC 32.6 % (32.0-36.0); MEAN PLATELET VOLUME 8.8 FL (7.0-11.0); MONO % 4.9 % (0.0-8.0); MONOCYTE # 0.3 TH/MM3 (0-0.9); NEUT % 68.1 % (16.0-70.0); PLATELET COUNT 301 TH/MM3 (150-450); RED BLOOD COUNT 4.88 MIL/MM3 (4.00-5.30); RED CELL DISTRIBUTION WIDTH 14.3 % (11.6-17.2); WHITE BLOOD COUNT 5.9 TH/MM3 (4.0-11.0)
[2017-09-04 22:56] LABS: CHLORIDE 102 MEQ/L (98-107); SODIUM (NA) 136 MEQ/L (136-145)
[2017-09-04 22:58] LABS: CALCIUM 9.1 MG/DL (8.5-10.1)
[2017-09-04 22:59] LABS: BICARBONATE 26.5 MEQ/L (21.0-32.0); BLOOD UREA NITROGEN 6 MG/DL (7-18); GLUCOSE,RANDOM 87 MG/DL (74-106)
[2017-09-04 23:02] LABS: CREATININE 0.98 MG/DL (0.50-1.00); GLOMERULAR FILTRATION RATE 81 ML/MIN (>89)
[2017-09-04] MEDS ORDERED: IOHEXOL 350 MG/ML 10 ML VIAL (for RAD DIAG) IVCONTRAST ONE (23:15)
[2017-09-04 23:47] VITALS: BP 101/76; PULSE 88; RESP 16; O2SAT 100
--- NOTE | 2017-09-04 23:54 | RADRPT ---
EXAM DATE/TIME: 09/04/2017 23:19 [facility] COMPARISON: No previous studies available for comparison. INDICATIONS : Left ankle swollen, cellulitis. IV CONTRAST: 70 cc Omnipaque 350 (iohexol) IV RADIATION DOSE: 6.05 CTDIvol (mGy) MEDICAL HISTORY : Hepatitis C. IV drug use, TIA, Cellulitis SURGICAL HISTORY : Valve replacement ENCOUNTER: Initial ACUITY: 4 - 6 days PAIN SCALE: 8/10 LOCATION: Left ankle TECHNIQUE: Volumetric scanning of the ankle was performed. Using automated exposure control and adjustment of t he mA and/or kV according to patient size, radiation dose was kept as low as reasonably achievable to obtain optimal diagnostic quality images. DICOM format image data is available electronically for review and comparison. FINDINGS: BONES: No evidence of fracture. Alignment is within normal limits. JOINTS: Ankle mortise is intact. No evidence of joint narrowing or effusion. SOFT TISSUES: There is fluid in the left extensor digitorum tendon is at the level of the ankle and hindfoot. The m ore proximal fluid collection at the level of the ankle measures 4.1 x 1.7 x 1.9 cm. The more distal area of fluid at the level of the hindfoot measures 1.8 x 1.3 x 0.6 cm. These appear to be connected. This could be surrounding inflammatory change in the subcutaneous tissues around this region. CONCLUSION: Fluid collection seen around the extensor digitorum tendon. These could be very prominent findings of tendinitis. Infection cannot be ruled out in the correct clinical situation. The bony structures appear intact. Daniel Small MD on September 04, 2017 at 23:49 Board Certified Radiologist. This report was verified electronically.
== END 2017-09-05 00:14 | disposition left against medical advice (07) ==
LOC: PHED 21:06
DX: L02.612 Cutaneous abscess of left foot (principal); M77.9 Enthesopathy, unspecified; B19.20 Unspecified viral hepatitis C without hepatic coma; F31.9 Bipolar disorder, unspecified; F41.9 Anxiety disorder, unspecified; K21.9 Gastro-esophageal reflux disease without esophagitis; Z86.73 Personal history of transient ischemic attack (TIA), and cerebral infarction without residual deficits; Z95.2 Presence of prosthetic heart valve; Z86.14 Personal history of Methicillin resistant Staphylococcus aureus infection; Z79.2 Long term (current) use of antibiotics; Z79.82 Long term (current) use of aspirin
CPT/HCPCS: 73701; 80048; 84702; 85025; 85652; 99284; Q9967

== ENCOUNTER 2017-12-22 18:06 | Emergency (ER) | payer SELFPAY ==
[~2017-12-22] VITALS: Ht 165.1 cm; Wt 55.0 kg
[2017-12-22 18:10] VITALS: BP 127/77; PULSE 99; RESP 17; TEMP 97.8; O2SAT 100
[2017-12-22 18:23] VITALS: BP 124/90; PULSE 89; RESP 17; O2SAT 100
[2017-12-22] MEDS ORDERED: SODIUM CHLOR 0.9% 1000 ML INJ 1,000 ML IV SCH (18:28)
[2017-12-22] MEDS ORDERED: SODIUM CHLORIDE 0.9% FLUSH 10 ML FLUSH IV FLUSH PRN (18:30)
--- NOTE | 2017-12-22 18:37 | PD ---
HPI Chief Complaint: Pain: Acute or Chronic Time Seen by Provider: 18:17 Travel History International Travel<30 days: No Contact w/Intl Traveler<30days: No Traveled to known affect area: No History of Present Illness HPI 32-year-old female presents to the emergency department for evaluation of the left-sided abdominal pain/lower chest pain. Patient reports associated shortness of breath. Patient states she had cold symptoms that started approximately a week ago. She states those are resolving. She started with the left-sided pain on Thursday, 4 days ago. Patient denies any fevers or chills. She denies any vomiting. No diarrhea. She has history of valve replacement 2 due to endocarditis. Patient states that she last used IV drugs in July. She denies currently using IV drugs. Patient is not currently on any prescribed medications. She denies . 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 No recent surgery or travel. No hemoptysis. No leg edema. Current pain is 8/10, sharp. Moderate severity. Patient states she was following with Dr. Perez, but due to lack of insurance has not seen him since August. PFSH Past Medical History Hx Anticoagulant Therapy: Yes (LOVENOX) Asthma: No Autoimmune Disease: No Blood Disorders: No Bipolar Disorder: Yes Anxiety: Yes Depression: Yes Heart Rhythm Problems: No Cancer: No Cardiovascular Problems: Yes (Endocarditis) High Cholesterol: No Chemotherapy: No Chest Pain: No Congestive Heart Failure: No COPD: No Cerebrovascular Accident: Yes (TIA) Diabetes: No Diminished Hearing: No Endocrine: No Gastrointestinal Disorders: Yes GERD: Yes Genitourinary: No Hepatitis: Yes (hep C) Immune Disorder: No Implanted Vascular Access Dvce: No Musculoskeletal: No Neurologic: Yes Psychiatric: No Reproductive: No Respiratory: No Immunizations Current: Yes Radiation Therapy: No Seizures: Yes (R/T DRUG USE) Sleep Apnea: No Thyroid Disease: No ?: Not LMP: 11/28/17 : 1 Para: 1 Past Surgical History Abdominal Surgery: No AICD: No Arteriovenous Shunt: No Cardiac Surgery: Yes (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 ) Ear Surgery: No Endocrine Surgery: No Eye Surgery: No Genitourinary Surgery: No Gynecologic Surgery: No Insulin Pump: No Joint Replacement: No Neurologic Surgery: No Oral Surgery: No Pacemaker: No Thoracic Surgery: No Other Surgery: Yes (CYST REMOVED RIGHT BREAST AGE 14) Social History Alcohol Use: Yes (OCC) Tobacco Use: No Substance Use: Yes (FORMER COCAINE, DILAUDID, POLYSUBSTANCE, HERION, currently uses marijuana) Allergies-Medications (Allergen,Severity, Reaction): Coded Allergies: No Known Allergies (Verified Adverse Reaction, Unknown, 09/04/17) Reported Meds & Prescriptions Reported Meds & Active Scripts Active Tylenol (Acetaminophen) 325 Mg Tab 650 Mg PO Q6H PRN Reported Womens One Daily (Multiple Vitamins W/ Minerals) 27 Mg-0.4 Mg Tab 1 Tab PO DAILY Review of Systems Except as stated in HPI: all other systems reviewed are Neg Physical Exam Narrative GENERAL: Well-nourished, well-developed female patient, afebrile. SKIN: Focused skin assessment warm/dry. HEAD: Normocephalic. Atraumatic EYES: No scleral icterus. No injection or drainage. NECK: Supple, trachea midline. No JVD or lymphadenopathy. CARDIOVASCULAR: Regular rate and rhythm without murmurs, gallops, or rubs. Bilateral radial and pedal pulses are 2+. RESPIRATORY: Breath sounds equal bilaterally. No accessory muscle use. Lung sounds are clear to auscultation. GASTROINTESTINAL: Abdomen soft and nondistended. MUSCULOSKELETAL: No cyanosis, or edema. Patient has tenderness to palpation of the left lower chest. BACK: Nontender without obvious deformity. No CVA tenderness. Data Data Last Documented VS Vital Signs Date Time Temp Pulse Resp B/P (MAP) Pulse Ox O2 Delivery O2 Flow Rate FiO2 12/22/17 18:23 89 17 124/90 (101) 100 Room Air 12/22/17 18:10 97.8 Orders Orders Complete Blood Count With Diff (12/22/17 18:) Comprehensive Metabolic Panel (12/22/17 18:) Lipase (12/22/17 18:) Prothrombin Time / Inr (Pt) (12/22/17 18:) Act Partial Throm Time (Ptt) (12/22/17 18:) Urinalysis - C+S If Indicated (12/22/17 18:) Iv Access Insert/Monitor (12/22/17 18:) Ecg Monitoring (12/22/17 18:28) Oximetry (12/22/17 18:28) Sodium Chlor 0.9% 1000 Ml Inj (Ns 1000 M (12/22/17 18:28) Sodium Chloride 0.9% Flush (Ns Flush) (12/22/17 18:30) Electrocardiogram (12/22/17 18:28) Ed Urine Pregnancytest Poc (12/22/17 18:28) Creatine Kinase (Cpk) (12/22/17 18:28) Troponin I (12/22/17 18:28) Chest, Single Ap (12/22/17 ) Magnesium (Mg) (12/22/17 18:28) Beta Hcg (Quant/Titer) (12/22/17 18:59) Acetaminophen (Tylenol) (12/22/17 19:15) Us Pelvis (Ques Preg/Ectopic) (12/22/17 ) Us Pelvis (Ques Pr/Ect)W Trans (12/22/17 ) Ed Discharge Order (12/22/17 22:12) Labs Laboratory Tests Test 12/22/17 18:59 12/22/17 19:06 White Blood Count 8.7 TH/MM3 Red Blood Count 5.94 MIL/MM3 Hemoglobin 13.5 GM/DL Hematocrit 41.7 % Mean Corpuscular Volume 70.3 FL Mean Corpuscular Hemoglobin 22.8 PG Mean Corpuscular Hemoglobin Concent 32.4 % Red Cell Distribution Width 20.9 % Platelet Count 224 TH/MM3 Mean Platelet Volume 10.6 FL Neutrophils (%) (Auto) 77.2 % Lymphocytes (%) (Auto) 16.0 % Monocytes (%) (Auto) 5.9 % Eosinophils (%) (Auto) 0.5 % Basophils (%) (Auto) 0.4 % Neutrophils # (Auto) 6.7 TH/MM3 Lymphocytes # (Auto) 1.4 TH/MM3 Monocytes # (Auto) 0.5 TH/MM3 Eosinophils # (Auto) 0.0 TH/MM3 Basophils # (Auto) 0.0 TH/MM3 CBC Comment DIFF FINAL Differential Comment Prothrombin Time 10.3 SEC Prothromb Time International Ratio 1.0 RATIO Activated Partial Thromboplast Time 27.8 SEC Blood Urea Nitrogen 12 MG/DL Creatinine 1.10 MG/DL Random Glucose 58 MG/DL Total Protein 9.4 GM/DL Albumin 4.5 GM/DL Calcium Level 9.6 MG/DL Magnesium Level 2.3 MG/DL Alkaline Phosphatase 90 U/L Aspartate Amino Transf (AST/SGOT) 22 U/L Alanine Aminotransferase (ALT/SGPT) 36 U/L Total Bilirubin 0.3 MG/DL Sodium Level 139 MEQ/L Potassium Level 3.8 MEQ/L Chloride Level 105 MEQ/L Carbon Dioxide Level 24.1 MEQ/L Anion Gap 10 MEQ/L Estimat Glomerular Filtration Rate 71 ML/MIN Total Creatine Kinase 70 U/L Troponin I LESS THAN 0.02 NG/ML Lipase 146 U/L Human Chorionic Gonadotropin, Quant 35 MIU/ML Urine Color LIGHT-YELLOW Urine Turbidity CLEAR Urine pH 6.5 Urine Specific [place] 1.015 Urine Protein NEG mg/dL Urine Glucose (UA) NEG mg/dL Urine Ketones NEG mg/dL Urine Occult Blood NEG Urine Nitrite NEG Urine Bilirubin NEG Urine Urobilinogen LESS THAN 2.0 MG/DL Urine Leukocyte Esterase NEG Urine Squamous Epithelial Cells 1 /hpf Microscopic Urinalysis Comment CULT NOT INDICATED MDM Medical Decision Making Medical Screen Exam Complete: Yes Emergency Medical Condition: Yes Medical Record Reviewed: Yes Differential Diagnosis Diverticulitis versus pancreatitis versus UTI versus pyelonephritis versus ACS versus pneumonia versus pneumothorax versus PE versus endocarditis Narrative Course 32-year-old female presents to the emergency department for evaluation of left lower chest wall and left upper abdominal pain. She does have significant past medical history due to IV drug use. EKG, CBC, CMP, CK, troponin, magnesium, lipase, PTT, PT/INR, UA, urine test are ordered and pending. Patient is given normal saline 1 L IV bolus. EKG shows SR, RBB, no acute ST changes. CBC shows no acute abnormality. CMP shows no acute abnormal. CK is 70. Troponin is less than 0.02. Magnesium is 2.3. Lipase is 146. Coags are unremarkable. UA is negative. UPT is positive. Beta hCG and pelvic ultrasound are ordered due to positive test. Beta hCG is 35. Pelvic ultrasound shows no evidence of at this time due to low ECG. 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 The patient was discharged in stable condition with instructions, including return instructions and follow up instructions. 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
--- NOTE | 2017-12-22 18:58 | RADRPT ---
EXAM DATE/TIME: 12/22/2017 18:42 [facility] COMPARISON: CHEST SINGLE AP, June 08, 2016, 8:03. INDICATIONS : Short of breath. Left sided chest pain. MEDICAL HISTORY : None. SURGICAL HISTORY : CABG. Heart valve replacements. ENCOUNTER: Initial ACUITY: 1 day PAIN SCORE: 5/10 LOCATION: Bilateral chest FINDINGS: There is slight blunting of the left gastric angle with slight scarring in the lateral left base whic h appear to be stable findings. Lungs otherwise grossly clear. Aortic valve replacement present. Ster notomy wires noted. Cardiac contours are stable. CONCLUSION: Stable chest. No acute disease. Daniel Jacobson MD on December 22, 2017 at 18:55 Board Certified Radiologist. This report was verified electronically.
[2017-12-22] MEDS ORDERED: WOMETAB5 PO (19:05)
[2017-12-22] MEDS ORDERED: ACETAMINOPHEN 325 MG TAB PO ONE (19:15)
--- NOTE | 2017-12-22 19:24 | PD ---
Physical Exam Narrative I, Dr. Kim, have reviewed the advance practice practitioner's documentation and am in agreement, met with the patient face to face, made the diagnosis, and the medical decision making was done by me. *My assessment and Findings: URI vs. pneumonia vs. costochondritis 32yo well appearing female here with c/o left upper abdominal/rib pain for a few days. Pt has been having throat pain, cough, rhinorrhea. +Nausea. Denies any chest pain, fever, hemoptysis, vomiting, vaginal bleeding or discharge. Pt denies any leg swelling or pain, recent immobilization. Pt does have history of right DVT and was on lovenox, ExIVDA and endocarditis. Pt denies any IVDA recently. Pt is afebrile here. HR in the 80s and saturating at 100% on RA. Pt denies any sob to me, said she had some last night but not anymore. Do not think pt has PE. Wells criteria for PE is 1.5 which is low probability. CXR negative. Pt found out she is in the ED with positive urine . Pt did not have any abdominal tenderness on my exam. There is some tenderness on left lower rib but pt denies any trauma or fall. Pt given acetaminophen. Labs reviewed, no leukocytosis. H/H normal. Troponin negative. Lipase normal. CMP unremarkable except glucose is low at 58. Pt given juice. bHCG is only 35. UA negative. US showed no evidence of intrauterine . No mass or cystic lesions in both ovaries. Think it is too early. Will have pt follow up with OBGYN as outpatient. Pt feels better after acetaminophen. Pt tolerating PO. Return precautions given. Data Data Last Documented VS Vital Signs Date Time Temp Pulse Resp B/P (MAP) Pulse Ox O2 Delivery O2 Flow Rate FiO2 12/22/17 18:23 89 17 124/90 (101) 100 Room Air 12/22/17 18:10 97.8 Orders Orders Complete Blood Count With Diff (12/22/17 18:28) Comprehensive Metabolic Panel (12/22/17 18:28) Lipase (12/22/17 18:28) Prothrombin Time / Inr (Pt) (12/22/17 18:28) Act Partial Throm Time (Ptt) (12/22/17 18:28) Urinalysis - C+S If Indicated (12/22/17 18:28) Iv Access Insert/Monitor (12/22/17 18:28) Ecg Monitoring (12/22/17 18:28) Oximetry (12/22/17 18:28) Sodium Chlor 0.9% 1000 Ml Inj (Ns 1000 M (12/22/17 18:28) Sodium Chloride 0.9% Flush (Ns Flush) (12/22/17 18:30) Electrocardiogram (12/22/17 18:28) Ed Urine Pregnancytest Poc (12/22/17 18:28) Creatine Kinase (Cpk) (12/22/17 18:28) Troponin I (12/22/17 18:28) Chest, Single Ap (12/22/17 ) Magnesium (Mg) (12/22/17 18:28) Beta Hcg (Quant/Titer) (12/22/17 18:59) Acetaminophen (Tylenol) (12/22/17 19:15) Us Pelvis (Ques Preg/Ectopic) (12/22/17 ) Us Pelvis (Ques Pr/Ect)W Trans (12/22/17 ) Labs Laboratory Tests Test 12/22/17 18:59 12/22/17 19:06 White Blood Count 8.7 TH/MM3 Red Blood Count 5.94 MIL/MM3 Hemoglobin 13.5 GM/DL Hematocrit 41.7 % Mean Corpuscular Volume 70.3 FL Mean Corpuscular Hemoglobin 22.8 PG Mean Corpuscular Hemoglobin Concent 32.4 % Red Cell Distribution Width 20.9 % Platelet Count 224 TH/MM3 Mean Platelet Volume 10.6 FL Neutrophils (%) (Auto) 77.2 % Lymphocytes (%) (Auto) 16.0 % Monocytes (%) (Auto) 5.9 % Eosinophils (%) (Auto) 0.5 % Basophils (%) (Auto) 0.4 % Neutrophils # (Auto) 6.7 TH/MM3 Lymphocytes # (Auto) 1.4 TH/MM3 Monocytes # (Auto) 0.5 TH/MM3 Eosinophils # (Auto) 0.0 TH/MM3 Basophils # (Auto) 0.0 TH/MM3 CBC Comment DIFF FINAL Differential Comment Prothrombin Time 10.3 SEC Prothromb Time International Ratio 1.0 RATIO Activated Partial Thromboplast Time 27.8 SEC Blood Urea Nitrogen 12 MG/DL Creatinine 1.10 MG/DL Random Glucose 58 MG/DL Total Protein 9.4 GM/DL Albumin 4.5 GM/DL Calcium Level 9.6 MG/DL Magnesium Level 2.3 MG/DL Alkaline Phosphatase 90 U/L Aspartate Amino Transf (AST/SGOT) 22 U/L Alanine Aminotransferase (ALT/SGPT) 36 U/L Total Bilirubin 0.3 MG/DL Sodium Level 139 MEQ/L Potassium Level 3.8 MEQ/L Chloride Level 105 MEQ/L Carbon Dioxide Level 24.1 MEQ/L Anion Gap 10 MEQ/L Estimat Glomerular Filtration Rate 71 ML/MIN Total Creatine Kinase 70 U/L Troponin I LESS THAN 0.02 NG/ML Lipase 146 U/L Human Chorionic Gonadotropin, Quant 35 MIU/ML Urine Color LIGHT-YELLOW Urine Turbidity CLEAR Urine pH 6.5 Urine Specific [place] 1.015 Urine Protein NEG mg/dL Urine Glucose (UA) NEG mg/dL Urine Ketones NEG mg/dL Urine Occult Blood NEG Urine Nitrite NEG Urine Bilirubin NEG Urine Urobilinogen LESS THAN 2.0 MG/DL Urine Leukocyte Esterase NEG Urine Squamous Epithelial Cells 1 /hpf Microscopic Urinalysis Comment CULT NOT INDICATED MDM Supervised Visit with DEON: Yes Interpretation(s) EKG: NSR 85bpm. RBBB. No ST segment elevation. Diagnosis Primary Impression: Cough Additional Impression: Early stage of Patient Instructions: General Instructions Departure Forms: Tests/Procedures Additional Instruction: Please follow up with your OBGYN for repeat bHCG and US. Please return to the ED if symptoms worsen. Med/Other Pt SpecificInfo: Prescription(s) given Scripts Acetaminophen (Tylenol) 325 Mg Tab 650 MG PO Q6H Y for PAIN SCALE 1 TO 4, #20 TAB 0 Refills Prov: KimConnie DO 12/22/17 Disposition: 01 DISCHARGE HOME Condition: Stable Connie Kim DO December 22, 2017 19:24
[2017-12-22 19:36] LABS: BILIRUBIN, URINE NEG (NEG); BLOOD, URINE NEG (NEG); GLUCOSE,URINE NEG (NEG); KETONE, URINE NEG (NEG); NITRITE,URINE NEG (NEG); PH, URINE 6.5 (5.0-8.5); SQUAMOUS EPITHELIAL CELL URINE 1 /hpf (0-5); URINE COLOR LIGHT-YELLOW (YELLW/STRAW); URINE LEUKOCYTE ESTERASE NEG (NEG)
[2017-12-22 19:41] LABS: AUTOMATED NEUTROPHIL # 6.7 TH/MM3 (1.8-7.7); BASOPHIL % 0.4 % (0.0-2.0); EOSINOPHIL % 0.5 % (0.0-4.0); HEMATOCRIT 41.7 % (35.0-46.0); HEMOGLOBIN 13.5 GM/DL (11.6-15.3); LYMPHOCYTE # 1.4 TH/MM3 (1.0-4.8); MEAN CELL VOLUME 70.3 FL (80.0-100.0); MEAN CORPUSCULAR HEMOGLOBIN 22.8 PG (27.0-34.0); MEAN CORPUSCULAR HGB CONC 32.4 % (32.0-36.0); MEAN PLATELET VOLUME 10.6 FL (7.0-11.0); MONO % 5.9 % (0.0-8.0); MONOCYTE # 0.5 TH/MM3 (0-0.9); NEUT % 77.2 % (16.0-70.0); PLATELET COUNT 224 TH/MM3 (150-450); RED BLOOD COUNT 5.94 MIL/MM3 (4.00-5.30); RED CELL DISTRIBUTION WIDTH 20.9 % (11.6-17.2); WHITE BLOOD COUNT 8.7 TH/MM3 (4.0-11.0)
[2017-12-22 19:52] LABS: PROTHROMBIN TIME - PATIENT 10.3 SEC (9.8-11.6)
[2017-12-22 20:06] LABS: ALBUMIN 4.5 GM/DL (3.4-5.0); AST (GOT) 22 U/L (15-37); BICARBONATE 24.1 MEQ/L (21.0-32.0); BLOOD UREA NITROGEN 12 MG/DL (7-18); CALCIUM 9.6 MG/DL (8.5-10.1); CHLORIDE 105 MEQ/L (98-107); GLOMERULAR FILTRATION RATE 71 ML/MIN (>89); GLUCOSE,RANDOM 58 MG/DL (74-106); MAGNESIUM 2.3 MG/DL (1.5-2.5); SODIUM (NA) 139 MEQ/L (136-145)
[2017-12-22 20:07] LABS: ALT (GPT) 36 U/L (10-53)
[2017-12-22 20:12] LABS: ALKALINE PHOSPHATASE 90 U/L (45-117); TOTAL BILIRUBIN ADULT 0.3 MG/DL (0.2-1.0); TOTAL PROTEIN 9.4 GM/DL (6.4-8.2); TROPONIN I LESS THAN 0.02 NG/ML (0.02-0.05)
--- NOTE | 2017-12-22 21:22 | RADRPT ---
EXAM DATE/TIME: 12/22/2017 00:00 [facility] COMPARISON: No previous studies available for comparison. EXTERNAL COMPARISON : INDICATIONS : Ectopic. LAB(S): Beta-hC MEDICAL HISTORY : Gastroesophageal reflux disease. Hepatitis C. TIA. Bipolar. Substance use. SURGICAL HISTORY : Cardiac valve replacement. Cyst removed from rt breast. ENCOUNTER: Initial ACUITY: 1 day PAIN SCORE: 0/10 LOCATION: Bilateral pelvis MEASUREMENTS: UTERUS: 7.3 x 6.1 x 3.7 cm ENDOMETRIAL STRIPE: 12 mm RIGHT OVARY: 2.8 x 3.4 x 2.2 cm LEFT OVARY: 2.1 x 2.3 x 1.4 cm FREE FLUID: Yes cul de sac. CROWN RUMP LENGTH: too early = n/a WKS n/a DAYS FHR: n/a BPM COMPLETE APPROPRIATE ITEMS PRE PROCEDURE: ID x 2: Complete NameDate of BirthEducation: Nurse/Technologist explained procedure to patient/fam shen. Patient/family demonstrates understanding of procedure. FINDINGS: UTERUS: No evidence of intrauterine gestation. Prominent endometrium. Mild myometrial heterogeneity. RIGHT OVARY: Ovary contains no mass or significant cystic lesion. LEFT OVARY: Ovary contains no mass or significant cystic lesion. MISCELLANEOUS: Small volume of cul-de-sac fluid. CONCLUSION: No evidence of intrauterine gestation. Daniel Jacobson MD on December 22, 2017 at 21:16 Board Certified Radiologist. This report was verified electronically.
[2017-12-22] MEDS ORDERED: TYLE325T PO (22:12)
--- NOTE | 2017-12-23 22:29 | EKG ---
Date Performed: 12/22/2017 Time Performed: 18:37:39 PTAGE: 32 years EKG: Sinus rhythm POSSIBLE LEFT ATRIAL ENLARGEMENT INDETERMINATE AXIS RIGHT BUNDLE BRANCH BLOCK ABNORMAL ECG PREVIOUS TRACING : 06/14/2016 17.20 Since the previous tracing, no significant change noted DOCTOR: Casey Maldonado Interpretating Date/Time 12/23/2017 22:27:12
== END 2017-12-22 22:42 | disposition home or self-care (01) ==
LOC: NEPC 18:06
DX: O26.891 Other specified pregnancy related conditions, first trimester (principal); R05 Cough; R94.31 Abnormal electrocardiogram [ECG] [EKG]; F31.9 Bipolar disorder, unspecified; B19.20 Unspecified viral hepatitis C without hepatic coma; Z3A.00 Weeks of gestation of pregnancy not specified; Z95.2 Presence of prosthetic heart valve; Z86.718 Personal history of other venous thrombosis and embolism; Z86.73 Personal history of transient ischemic attack (TIA), and cerebral infarction without residual deficits
CPT/HCPCS: 71045; 76700; 76817; 80053; 81001; 82550; 83690; 83735; 84484; 84702; 84703; 85025; 85610; 85730; 93005; 99285; J7030

== ENCOUNTER 2018-06-21 19:25 | Observation (INO) ==
[2018-06-21] MEDS ORDERED: Sod Chloride 0.9% Inj 1,000 ML IV.SIG SCH ×2 (19:45→20:45)
--- NOTE | 2018-06-21 19:47 | ED ---
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 As per EMS, patient was found by her grandmother slumped over in the bathroom. Patient reports that she came home from the store and was cleaning up her 1-year-old baby - reports that the baby went outside of the bathroom but patient remained in the bathroom. Grandmother went to check up on the patient and found her slumped over in the bathroom. Reports that she was responsive but confused. Patient reports that she felt as if she had a stroke today- reports that she feels like she is back to baseline mental status. Reports that she did use drugs yesterday - she used oral dilaudid. She doesn't think that she had a seizure - reports that she has had only 2 seizures in the past - reports that they occurred when she was younger. Denies headache/dizzyness. Denies chest pain/sob. Denies abdominal pain. No other complaints at this time. Related Data Home Medications Medication Instructions Recorded Confirmed amitriptyline 25 mg PO DAILY 06/21/18 06/21/18 divalproex [Depakote] 250 mg PO BID 06/21/18 06/21/18 Allergies Allergy/AdvReac Type Severity Reaction Status Date / Time No Known Allergies Allergy Verified 06/21/18 19:36 Review of Systems ROS: all other systems reviewed are negative PMFSH History History Provided By: Patient Medical History Medical History TIA (transient ischemic attack) (Acute) Seizure (Acute) Endocarditis (Acute) Surgical History Surgical History Heart valve replaced (Acute) Social History Social History Substance History: Past History Second Hand Smoke Exposure: Yes Smoking Status: Former smoker Tobacco Type: Cigarettes How Often Do You Have a Drink Containing Alcohol: Monthly or less Recent Travel in [facility] within the Last 8 Weeks: No Recent Out of Country Travel within the Last 8 Weeks: No Exam Narrative Exam Narrative: GENERAL: mild distress SKIN: Focused skin assessment warm/dry. HEAD: Atraumatic. Normocephalic. EYES: Pupils equal and round, 2+ . No scleral icterus. No injection or drainage. ENT: No nasal bleeding or discharge. Mucous membranes pink and moist. NECK: Trachea midline. No JVD. CARDIOVASCULAR: Tachycardia. No murmur appreciated. RESPIRATORY: No accessory muscle use. Clear to auscultation. Breath sounds equal bilaterally. GASTROINTESTINAL: Abdomen soft, non-tender, nondistended. Hepatic and splenic margins not palpable. MUSCULOSKELETAL: No obvious deformities. No clubbing. No cyanosis. No edema. NEUROLOGICAL: Awake and alert. No obvious cranial nerve deficits. Motor grossly within normal limits. Normal speech. PSYCHIATRIC: Appropriate mood and affect; insight and judgment normal. Course Initial Documented Vital Signs Temperature 98.6 F 06/21/18 19:27 Pulse Rate 119 H 06/21/18 19:27 Respiratory Rate 16 06/21/18 19:27 Blood Pressure 147/101 H 06/21/18 19:27 Pulse Oximetry 94 L 06/21/18 19:27 Last Documented Vital Signs Temperature 98.6 F 06/21/18 19:27 Pulse Rate 108 H 06/21/18 21:32 Respiratory Rate 16 06/21/18 21:32 Blood Pressure 132/95 H 06/21/18 21:32 Pulse Oximetry 96 06/21/18 21:32 Medical Decision Making MDM Narrative Medical decision making narrative: During the course of the patients emergency department visit, the patients history, examination, and differential diagnosis were reviewed with the patient. The patient was placed on a hospital monitor with oximetry and frequent blood pressure monitoring. The patient had an IV access obtained and blood work sent for analysis. The patient was initially provided IVF. Patient is tachycardic with history of endocarditis - she admits to drug abuse - blood cultures were ordered. CT of head ordered as she was found unresponsive in the bathroom and does have history of TIA's/seizure. The patients laboratory studies were reviewed and remarkable for: WBC 7.5Hemoglobin 12.9, hematocrit 39.6, platelets 178 Sodium 139, potassium 3.9, BUN 14, creatinine 1.16, glucose 115 Troponin less than 0.02 CT of the head with a remote right basal ganglial infarcts, no acute intracranial abnormalities. Urine toxicology screen is negative Plan to observe overnight for syncope as patient reports that this feels exactly the same as when she was diagnosed with a TIA in the past. Patient is agreeable to observation overnight. case reviewed with Dr. Olson who accepts pt to service under obs for syncope vs tia vs seizure Medical Screen Exam Complete: Yes Emergency Medical Condition: Yes Differential Diagnosis Differential Diagnosis: endocarditis, tia, seizure Medical Records Medical records reviewed: Yes I reviewed the patient's medical records. Lab Data Lab results reviewed: Yes I reviewed the patient's lab results. Result diagrams: 06/21/18 19:30 06/21/18 19:30 POC Results POC Urine Results Negative Lab Results 06/21/18 06/21/18 06/21/18 Range/Units 19:30 19:30 19:30 WBC 7.5 (4.0-11.0) th/mm3 RBC 5.17 (4.00-5.30) mil/mm3 Hgb 12.9 (11.6-15.3) gm/dL Hct 39.6 (35.0-46.0) % MCV 76.6 L (80.0-100.0) fL MCH 24.9 L (27.0-34.0) pg MCHC 32.5 (32.0-36.0) % RDW 17.6 H (11.6-17.2) % Plt Count 178 (150-450) th/mm3 MPV 10.0 (7.0-11.0) fL Neut % (Auto) 74.3 H (16.0-70.0) % Lymph % (Auto) 17.4 (9.0-44.0) % [place] % (Auto) 7.3 (0.0-8.0) % Eos % (Auto) 0.1 (0.0-4.0) % Baso % (Auto) 0.9 (0.0-2.0) % Neut # (Auto) 5.6 (1.8-7.7) th/mm3 Lymph # (Auto) 1.3 (1.0-4.8) th/mm3 [place] # (Auto) 0.6 (0.0-0.9) th/mm3 Eos # (Auto) 0.0 (0.0-0.4) th/mm3 Baso # (Auto) 0.1 (0.0-0.2) th/mm3 WBC Differential . Differential Comment Auto diff final PT 11.3 (9.8-11.6) sec INR 1.1 Ratio APTT 27.8 (23.4-31.7) sec Sodium 139 (136-145) meq/L Potassium 3.9 (3.5-5.1) meq/L Chloride 105 (98-107) meq/L Carbon Dioxide 24.8 (21.0-32.0) meq/L Anion Gap 9 (5-15) meq/L BUN 14 (7-18) mg/dL Creatinine 1.16 H (0.50-1.00) mg/dL Estimated GFR 66 L (>89) mL/min POC Glucose (68-110) mg/dl Random Glucose 104 (74-106) mg/dL Calcium 8.8 (8.5-10.1) mg/dL Total Bilirubin 0.3 (0.2-1.0) mg/dL AST 28 (15-37) U/L ALT 42 (10-53) U/L Alkaline Phosphatase 78 (45-117) U/L Total Creatine Kinase (26-192) U/L CK-MB (CK-2) (0.5-3.6) ng/mL Troponin I (0.02-0.05) ng/mL Total Protein 8.5 H (6.4-8.2) g/dL Albumin 4.0 (3.4-5.0) g/dL Urine Color (Yellw/Straw) Urine Clarity (Clear) Urine pH (5.0-8.5) Ur Specific [place] (1.002-1.035) Urine Protein (Neg-Trace) mg/dL Urine Glucose (UA) (Negative) mg/dL Urine Ketones (Negative) mg/dL Urine Occult Blood (Negative) Urine Nitrate (Negative) Urine Bilirubin (Negative) Urine Urobilinogen (Less than 2) mg/dL Ur Leukocyte Esterase (Negative) Urine RBC (0-3) /hpf Urine WBC (0-5) /hpf Hyaline Casts (0-3) /lpf Urine Mucus (Occasional) /lpf Micro UA Comment Ur Microscopic Review Urine Culture Comments Urine Opiates Screen (Neg) Ur Barbiturates Screen (Neg) Valproic Acid (50-100) mcg/mL Ur Amphetamines Screen (Neg) U Benzodiazepines Scrn (Neg) Urine Cocaine Screen (Neg) U Cannabinoids Screen (Neg) 06/21/18 06/21/18 06/21/18 Range/Units 19:30 19:30 19:48 WBC (4.0-11.0) th/mm3 RBC (4.00-5.30) mil/mm3 Hgb (11.6-15.3) gm/dL Hct (35.0-46.0) % MCV (80.0-100.0) fL MCH (27.0-34.0) pg MCHC (32.0-36.0) % RDW (11.6-17.2) % Plt Count (150-450) th/mm3 MPV (7.0-11.0) fL Neut % (Auto) (16.0-70.0) % Lymph % (Auto) (9.0-44.0) % [place] % (Auto) (0.0-8.0) % Eos % (Auto) (0.0-4.0) % Baso % (Auto) (0.0-2.0) % Neut # (Auto) (1.8-7.7) th/mm3 Lymph # (Auto) (1.0-4.8) th/mm3 [place] # (Auto) (0.0-0.9) th/mm3 Eos # (Auto) (0.0-0.4) th/mm3 Baso # (Auto) (0.0-0.2) th/mm3 WBC Differential Differential Comment PT (9.8-11.6) sec INR Ratio APTT (23.4-31.7) sec Sodium (136-145) meq/L Potassium (3.5-5.1) meq/L Chloride (98-107) meq/L Carbon Dioxide (21.0-32.0) meq/L Anion Gap (5-15) meq/L BUN (7-18) mg/dL Creatinine (0.50-1.00) mg/dL Estimated GFR (>89) mL/min POC Glucose 115 H (68-110) mg/dl Random Glucose (74-106) mg/dL Calcium (8.5-10.1) mg/dL Total Bilirubin (0.2-1.0) mg/dL AST (15-37) U/L ALT (10-53) U/L Alkaline Phosphatase (45-117) U/L Total Creatine Kinase 139 (26-192) U/L CK-MB (CK-2) 1.7 (0.5-3.6) ng/mL Troponin I Less than 0.02 L (0.02-0.05) ng/mL Total Protein (6.4-8.2) g/dL Albumin (3.4-5.0) g/dL Urine Color (Yellw/Straw) Urine Clarity (Clear) Urine pH (5.0-8.5) Ur Specific [place] (1.002-1.035) Urine Protein (Neg-Trace) mg/dL Urine Glucose (UA) (Negative) mg/dL Urine Ketones (Negative) mg/dL Urine Occult Blood (Negative) Urine Nitrate (Negative) Urine Bilirubin (Negative) Urine Urobilinogen (Less than 2) mg/dL Ur Leukocyte Esterase (Negative) Urine RBC (0-3) /hpf Urine WBC (0-5) /hpf Hyaline Casts (0-3) /lpf Urine Mucus (Occasional) /lpf Micro UA Comment Ur Microscopic Review Urine Culture Comments Urine Opiates Screen (Neg) Ur Barbiturates Screen (Neg) Valproic Acid 29 L (50-100) mcg/mL Ur Amphetamines Screen (Neg) U Benzodiazepines Scrn (Neg) Urine Cocaine Screen (Neg) U Cannabinoids Screen (Neg) 06/21/18 06/21/18 Range/Units 19:50 19:50 WBC (4.0-11.0) th/mm3 RBC (4.00-5.30) mil/mm3 Hgb (11.6-15.3) gm/dL Hct (35.0-46.0) % MCV (80.0-100.0) fL MCH (27.0-34.0) pg MCHC (32.0-36.0) % RDW (11.6-17.2) % Plt Count (150-450) th/mm3 MPV (7.0-11.0) fL Neut % (Auto) (16.0-70.0) % Lymph % (Auto) (9.0-44.0) % [place] % (Auto) (0.0-8.0) % Eos % (Auto) (0.0-4.0) % Baso % (Auto) (0.0-2.0) % Neut # (Auto) (1.8-7.7) th/mm3 Lymph # (Auto) (1.0-4.8) th/mm3 [place] # (Auto) (0.0-0.9) th/mm3 Eos # (Auto) (0.0-0.4) th/mm3 Baso # (Auto) (0.0-0.2) th/mm3 WBC Differential Differential Comment PT (9.8-11.6) sec INR Ratio APTT (23.4-31.7) sec Sodium (136-145) meq/L Potassium (3.5-5.1) meq/L Chloride (98-107) meq/L Carbon Dioxide (21.0-32.0) meq/L Anion Gap (5-15) meq/L BUN (7-18) mg/dL Creatinine (0.50-1.00) mg/dL Estimated GFR (>89) mL/min POC Glucose (68-110) mg/dl Random Glucose (74-106) mg/dL Calcium (8.5-10.1) mg/dL Total Bilirubin (0.2-1.0) mg/dL AST (15-37) U/L ALT (10-53) U/L Alkaline Phosphatase (45-117) U/L Total Creatine Kinase (26-192) U/L CK-MB (CK-2) (0.5-3.6) ng/mL Troponin I (0.02-0.05) ng/mL Total Protein (6.4-8.2) g/dL Albumin (3.4-5.0) g/dL Urine Color Yellow (Yellw/Straw) Urine Clarity Clear (Clear) Urine pH 5.0 (5.0-8.5) Ur Specific Bee 1.016 (1.002-1.035) Urine Protein 30 H (Neg-Trace) mg/dL Urine Glucose (UA) Negative (Negative) mg/dL Urine Ketones Negative (Negative) mg/dL Urine Occult Blood Negative (Negative) Urine Nitrate Negative (Negative) Urine Bilirubin Negative (Negative) Urine Urobilinogen Less than 2 (Less than 2) mg/dL Ur Leukocyte Esterase Negative (Negative) Urine RBC Less than 1 (0-3) /hpf Urine WBC 1 (0-5) /hpf Hyaline Casts 8 (0-3) /lpf Urine Mucus Few H (Occasional) /lpf Micro UA Comment Culture not ind Ur Microscopic Review Not Reportable Urine Culture Comments Culture not ind Urine Opiates Screen Neg (Neg) Ur Barbiturates Screen Neg (Neg) Valproic Acid (50-100) mcg/mL Ur Amphetamines Screen Neg (Neg) U Benzodiazepines Scrn Neg (Neg) Urine Cocaine Screen Neg (Neg) U Cannabinoids Screen Neg (Neg) Imaging Data Attestation: I personally reviewed and interpreted this imaging study as follows : Radiologist's impression: Head CT 06/21/18 19:29 CONCLUSION: 1. Remote right basal ganglia lacunar infarct. 2. No acute intracranial abnormality. . ECG Data EKG Prior to Arrival: Yes Attestation: I personally reviewed and interpreted this ECG as follows: Prior ECG tracings: available for review Interpretation: EKG at 1930: Sinus tach at 122bpm, qt/qtc: 324/397, rbbb - ekg similar to past ekg's Discharge Plan Discharge Disposition Patient Disposition: 32 Still Patient Discharge Condition Condition: Fair Discharge Details Diagnosis: Syncope and collapse Physicians Team ED Provider: Sherice Camarena Primary Care Provider: Primary Care Jazzy Suggs Rxs /Orders / Referrals /Forms Prescriptions: No Action divalproex [Depakote] 250 mg Tablet,Delayed Release (Dr/Ec) 250 mg PO BID RF: 0 amitriptyline 25 mg Tablet 25 mg PO DAILY RF: 0 Status ED Status: With Doctor
[2018-06-21 19:52] LABS: Baso # (Auto) 0.1 th/mm3 (0.0-0.2); Baso % (Auto) 0.9 % (0.0-2.0); Eos % (Auto) 0.1 % (0.0-4.0); Hematocrit 39.6 % (35.0-46.0); Hemoglobin 12.9 gm/dL (11.6-15.3); Lymph # (Auto) 1.3 th/mm3 (1.0-4.8); Lymph % (Auto) 17.4 % (9.0-44.0); Mean Corpuscular HGB Conc 32.5 % (32.0-36.0); Mean Corpuscular Hemoglobin 24.9 pg (27.0-34.0); Mean Corpuscular Volume 76.6 fL (80.0-100.0); Mono # (Auto) 0.6 th/mm3 (0.0-0.9); Mono % (Auto) 7.3 % (0.0-8.0); Neut # (Auto) 5.6 th/mm3 (1.8-7.7); Neut % (Auto) 74.3 % (16.0-70.0); Platelet Count 178 th/mm3 (150-450); Red Blood Count 5.17 mil/mm3 (4.00-5.30); Red Cell Distribution Width 17.6 % (11.6-17.2); White Blood Count 7.5 th/mm3 (4.0-11.0)
[2018-06-21 19:58] LABS: Activated Partial Thrombo Time 27.8 sec (23.4-31.7); INR 1.1 Ratio; Prothrombin Time 11.3 sec (9.8-11.6)
[2018-06-21 20:03] LABS: Anion Gap 9 meq/L (5-15); Aspartate Aminotransferase 28 U/L (15-37); Blood Urea Nitrogen 14 mg/dL (7-18); Calcium 8.8 mg/dL (8.5-10.1); Carbon Dioxide 24.8 meq/L (21.0-32.0); Chloride 105 meq/L (98-107); Glomerular Filtration Rate 66 mL/min (>89); Glucose,Random 104 mg/dL (74-106); Potassium 3.9 meq/L (3.5-5.1); Sodium 139 meq/L (136-145)
[2018-06-21 20:04] LABS: Alanine Aminotransferase 42 U/L (10-53)
[2018-06-21 20:06] LABS: Alkaline Phosphatase 78 U/L (45-117); Total Protein 8.5 g/dL (6.4-8.2)
--- NOTE | 2018-06-21 20:06 | CT ---
EXAM DATE: 06/21/2018 8:02 PM EST AGE/SEX: 32 years / Female INDICATIONS: Dizziness and confusion. CLINICAL DATA: This is the patient's initial encounter. Patient reports that signs and symptoms have been present for 1 day and indicates a pain score of 0/10. MEDICAL/SURGICAL HISTORY: None. None. RADIATION DOSE: 36.53 CTDI (mGy) COMPARISON: [facility] – [place] BRAIN W & W/O CONTRAST, 03/06/2016. . TECHNIQUE: CT of the head without contrast. Using automated exposure control and adjustment of the mA and/or kV according to patient size, radiation dose was kept as low as reasonably achievable to ob tain optimal diagnostic quality images. DICOM format image data is available electronically for revi ew and comparison. FINDINGS: Cerebrum: Remote right basal ganglia lacunar infarct. The ventricles are normal for age. No evidence of midline shift, mass lesion, hemorrhage or acute infarction. No extraaxial fluid collections are s een. Posterior Fossa: The cerebellum and brainstem are intact. The 4th ventricle is midline. The cerebe llopontine angle is unremarkable. Extracranial: The visualized portion of the orbits is intact. Skull: The calvaria is intact. No evidence of skull fracture. CONCLUSION: 1. Remote right basal ganglia lacunar infarct. 2. No acute intracranial abnormality. . Electronically signed by: Tunde Ashby MD 06/21/2018 8:04 PM EST
[2018-06-21 20:07] LABS: Creatine Kinase 139 U/L (26-192)
[2018-06-21 20:20] LABS: Creatine Kinase MB 1.7 ng/mL (0.5-3.6)
[2018-06-21 20:24] LABS: Bilirubin,Urine Negative (Negative); Clarity,Urine Clear (Clear); Color,Urine Yellow (Yellw/Straw); Glucose,Urine (UA) Negative (Negative); Hyaline Casts,Urine 8 /lpf (0-3); Leukocyte Esterase,Urine Negative (Negative); Mucus,Urine Few /lpf (Occasional); Nitrite,Urine Negative (Negative); Specific Gravity,Urine 1.016 (1.002-1.035)
[2018-06-21 20:26] LABS: Amphetamine Screen,Urine Neg (Neg); Barbiturate Screen,Urine Neg (Neg); Cannabinoid Screen,Urine Neg (Neg); Cocaine Screen,Urine Neg (Neg)
[2018-06-21 20:30] LABS: Opiate Screen,Urine Neg (Neg)
[2018-06-21] MEDS ORDERED: Dextrose 50% in Water 50 ML Vial IV.PUSH PRN (22:16)
[2018-06-21] MEDS ORDERED: Insulin NovoLOG Aspart Correctional Sugar Inj SQ PRN (22:16)
--- NOTE | 2018-06-21 22:25 | P.HP ---
History of Present Illness Service: [facility] Primary Care Physician: No Primary Care Physician History of Present Illness: 32-year-old female with a past medical history significant for previous IV drug abuse with endocarditis and bipolar disorder presents the emergency department for the evaluation of a syncopal episode. Per the patient, she took her daughter into the bathroom to change her and does not remember anything until she woke up on the bed with her grandmother. Reportedly, the patient's grandmother found her slumped over in the bathroom. The patient reports that when she came to on the bed she felt as though she was "frozen" and was unable to speak. She states these episodes were similar to her previous TIAs and strokes. She also reports she has had 2 known seizures in her lifetime. She denies any recent IV drug abuse. No fever/chills. No chest pain or shortness of breath. No nausea/vomiting/diarrhea. No current neurologic deficits. Review of Systems All other systems reviewed negative except as stated in HPI PMFSH - History History Provided By: Patient - Medical History Medical History: Medical History (Last Updated 06/21/18 @ 22:21 by Sherice Olson MD) TIA (transient ischemic attack) (Acute) Seizure (Acute) Endocarditis (Acute) Bipolar disorder - Surgical History Surgical History: Surgical History (Last Reviewed 06/21/18 @ 22:21 by Sherice Olson MD) Heart valve replaced (Acute) - Family History Family History: Family History (Last Updated 06/21/18 @ 22:22 by Sherice Olson MD) Other Diabetes mellitus - Social History I have reviewed the patient's Social History: Yes - Tobacco History Second Hand Smoke Exposure: Yes Tobacco Use In Past 30 Days: No Smoking Status: Former smoker Tobacco Type: Cigarettes - Alcohol History How Often Do You Have a Drink Containing Alcohol: Monthly or less - Substance Use History Substance History: Past History - Substance Use Type Opiates Status: Active Route Used: Intravenously Reason for Use: Get High Crack/Cocaine Status: Sustained Remission Marijuana Status: Active Route Used: Inhalation Reason for Use: Get High - Travel History Recent Travel in the [place] Within the Last 8 Weeks: No Recent Travel Out of the Country Within the Last 8 Weeks: No - Immunization History Tetanus Immunization: >5 Years Medications and Allergies Active Medications: Active Medications Sodium Chloride (Ns Flush) 2 ml IV.FLUSH PRN PRN PRN Reason: FLUSH AFTER USING IV ACCESS Allergies Allergy/AdvReac Type Severity Reaction Status Date / Time No Known Allergies Allergy Verified 06/21/18 19:36 Home Medications Medication Instructions Recorded Confirmed Type amitriptyline 25 mg PO DAILY 06/21/18 06/21/18 History divalproex [Depakote] 250 mg PO BID 06/21/18 06/21/18 History Exam Vital signs: Vital Signs 06/21/18 19:27 06/21/18 19:39 06/21/18 20:05 Temperature 98.6 F Pulse Rate 119 H 119 H 117 H Respiratory Rate 16 16 Blood Pressure 147/101 H 134/88 Pulse Oximetry 94 L 95 95 06/21/18 21:32 Temperature Pulse Rate 108 H Respiratory Rate 16 Blood Pressure 132/95 H Pulse Oximetry 96 Intake & Output 06/21/18 06/21/18 06/22/18 06:59 18:59 06:59 Intake Total 1000 / 1000 Balance 1000 / 1000 Weight 60.328 kg Intake: IV 1000 / 1000 NS Inj 1,000 ML @ 1000 mls/hr 1000 / 1000 IV.SIG [facility] Rx#:[id number] Narrative: Gen.: No acute distress Head: Normocephalic. Atraumatic. EENT: Pupils equal round and reactive to light. Nose without drainage. Airway intact. Throat without injection. Cardiovascular: Regular rate and rhythm. No murmurs, rubs or gallops. Respiratory: Lungs clear to auscultation bilaterally. No wheezes or rhonchi. Abdomen: Soft, nontender, nondistended. No peritoneal signs. Musculoskeletal: No gross deformities. No edema. Skin: No obvious rashes or erythema. Neuro: Cranial nerves II through XII intact. Strength 5/5 throughout. Sensation equal bilaterally. Normal speech. Results - Labs CBC & Chem 7: 06/21/18 19:30 06/21/18 19:30 Labs: Laboratory Results - last 24 hr 06/21/18 06/21/18 06/21/18 19:30 19:30 19:30 WBC 7.5 RBC 5.17 Hgb 12.9 Hct 39.6 MCV 76.6 L MCH 24.9 L MCHC 32.5 RDW 17.6 H Plt Count 178 MPV 10.0 Neut % (Auto) 74.3 H Lymph % (Auto) 17.4 [place] % (Auto) 7.3 Eos % (Auto) 0.1 Baso % (Auto) 0.9 Neut # (Auto) 5.6 Lymph # (Auto) 1.3 [place] # (Auto) 0.6 Eos # (Auto) 0.0 Baso # (Auto) 0.1 WBC Differential . Differential Comment Auto diff final PT 11.3 INR 1.1 APTT 27.8 Sodium 139 Potassium 3.9 Chloride 105 Carbon Dioxide 24.8 Anion Gap 9 BUN 14 Creatinine 1.16 H Estimated GFR 66 L POC Glucose Random Glucose 104 Calcium 8.8 Total Bilirubin 0.3 AST 28 ALT 42 Alkaline Phosphatase 78 Total Creatine Kinase CK-MB (CK-2) Troponin I Total Protein 8.5 H Albumin 4.0 Urine Color Urine Clarity Urine pH Ur Specific [place] Urine Protein Urine Glucose (UA) Urine Ketones Urine Occult Blood Urine Nitrate Urine Bilirubin Urine Urobilinogen Ur Leukocyte Esterase Urine RBC Urine WBC Hyaline Casts Urine Mucus Micro UA Comment Ur Microscopic Review Urine Culture Comments Urine Opiates Screen Ur Barbiturates Screen Valproic Acid Ur Amphetamines Screen U Benzodiazepines Scrn Urine Cocaine Screen U Cannabinoids Screen 06/21/18 06/21/18 06/21/18 19:30 19:30 19:48 WBC RBC Hgb Hct MCV MCH MCHC RDW Plt Count MPV Neut % (Auto) Lymph % (Auto) [place] % (Auto) Eos % (Auto) Baso % (Auto) Neut # (Auto) Lymph # (Auto) [place] # (Auto) Eos # (Auto) Baso # (Auto) WBC Differential Differential Comment PT INR APTT Sodium Potassium Chloride Carbon Dioxide Anion Gap BUN Creatinine Estimated GFR POC Glucose 115 H Random Glucose Calcium Total Bilirubin AST ALT Alkaline Phosphatase Total Creatine Kinase 139 CK-MB (CK-2) 1.7 Troponin I Less than 0.02 L Total Protein Albumin Urine Color Urine Clarity Urine pH Ur Specific [place] Urine Protein Urine Glucose (UA) Urine Ketones Urine Occult Blood Urine Nitrate Urine Bilirubin Urine Urobilinogen Ur Leukocyte Esterase Urine RBC Urine WBC Hyaline Casts Urine Mucus Micro UA Comment Ur Microscopic Review Urine Culture Comments Urine Opiates Screen Ur Barbiturates Screen Valproic Acid 29 L Ur Amphetamines Screen U Benzodiazepines Scrn Urine Cocaine Screen U Cannabinoids Screen 06/21/18 06/21/18 19:50 19:50 WBC RBC Hgb Hct MCV MCH MCHC RDW Plt Count MPV Neut % (Auto) Lymph % (Auto) [place] % (Auto) Eos % (Auto) Baso % (Auto) Neut # (Auto) Lymph # (Auto) [place] # (Auto) Eos # (Auto) Baso # (Auto) WBC Differential Differential Comment PT INR APTT Sodium Potassium Chloride Carbon Dioxide Anion Gap BUN Creatinine Estimated GFR POC Glucose Random Glucose Calcium Total Bilirubin AST ALT Alkaline Phosphatase Total Creatine Kinase CK-MB (CK-2) Troponin I Total Protein Albumin Urine Color Yellow Urine Clarity Clear Urine pH 5.0 Ur Specific [place] 1.016 Urine Protein 30 H Urine Glucose (UA) Negative Urine Ketones Negative Urine Occult Blood Negative Urine Nitrate Negative Urine Bilirubin Negative Urine Urobilinogen Less than 2 Ur Leukocyte Esterase Negative Urine RBC Less than 1 Urine WBC 1 Hyaline Casts 8 Urine Mucus Few H Micro UA Comment Culture not ind Ur Microscopic Review Not Reportable Urine Culture Comments Culture not ind Urine Opiates Screen Neg Ur Barbiturates Screen Neg Valproic Acid Ur Amphetamines Screen Neg U Benzodiazepines Scrn Neg Urine Cocaine Screen Neg U Cannabinoids Screen Neg - Imaging Impressions Head CT 06/21/18 19:29 CONCLUSION: 1. Remote right basal ganglia lacunar infarct. 2. No acute intracranial abnormality. . Caprini VTE Risk Assessment Caprini VTE Risk Assessment: No/Low Risk (score <= 1) Caprini Risk Assessment Model: Point Value = 1 Point Value = 2 Point Value = 3 Point Value = 5 Age 41-60 Minor surgery BMI > 25 kg/m2 Swollen legs Varicose veins or History of unexplained or recurrent spontaneous Oral contraceptives or hormone replacement Sepsis (< 1 month) Serious lung disease, including pneumonia (< 1 month) Abnormal pulmonary function Acute myocardial infarction Congestive heart failure (< 1 month) History of inflammatory bowel disease Medical patient at bed rest Age 61-74 Arthroscopic surgery Major open surgery (> 45 min) Laparoscopic surgery (> 45 min) Malignancy Confined to bed (> 72 hours) Immobilizing plaster cast Central venous access Age >= 75 History of VTE Family history of VTE Factor V Leiden Prothrombin [id number] Lupus anticoagulant Anticardiolipin antibodies Elevated serum homocysteine Heparin-induced thrombocytopenia Other congenital or acquired thrombophilia Stroke (< 1 month) Elective arthroplasty Hip, pelvis, or leg fracture Acute spinal cord injury (< 1 month) Prophylaxis Regimen: Total Risk Factor Score Risk Level Prophylaxis Regimen 0-1 Low Early ambulation 2 Moderate Order ONE of the following: *Sequential Compression Device (SCD) *Heparin 5000 units SQ BID 3-4 Higher Order ONE of the following medications: *Heparin 5000 units SQ TID *Enoxaparin/Lovenox 40 mg SQ daily (WT < 150 kg, CrCl > 30 mL/min) *Enoxaparin/Lovenox 30 mg SQ daily (WT < 150 kg, CrCl > 10-29 mL/min) *Enoxaparin/Lovenox 30 mg SQ BID (WT < 150 kg, CrCl > 30 mL/min) AND/OR *Sequential Compression Device (SCD) 5 or more Highest Order ONE of the following medications: *Heparin 5000 units SQ TID (Preferred with Epidurals) *Enoxaparin/Lovenox 40 mg SQ daily (WT < 150 kg, CrCl > 30 mL/min) *Enoxaparin/Lovenox 30 mg SQ daily (WT < 150 kg, CrCl > 10-29 mL/min) *Enoxaparin/Lovenox 30 mg SQ BID (WT < 150 kg, CrCl > 30 mL/min) AND *Sequential Compression Device (SCD) Assessment and Plan - Plan Assessment/plan: 1. Altered mental status/syncope Unclear etiology Patient with history of TIA/CVA Head CT significant for remote right basal ganglia lacunar infarct without acute intracranial abnormality Carotid ultrasound, head MRI/MRA pending EEG pending as patient with history of previous seizure and no witnesses of the event Neurology consulted, appreciate recommendations Echo pending 2. Bipolar disorder Continue home Depakote 3. History of IV drug abuse Last use of IV drugs was 2014 Patient reports taking p.o. Dilaudid approximately 1 week ago Cessation counseling provided FEN Regular diet Electrolytes: Monitor and replete as needed
[2018-06-22 05:27] LABS: Chol/HDL Ratio 2.52 Ratio; HDL Cholesterol 65.3 mg/dL (40.0-60.0)
[2018-06-22] MEDS ORDERED: Divalproex 250 MG DR Tablet PO SCH (09:00)
--- NOTE | 2018-06-22 10:02 | US ---
EXAM DATE: 06/22/2018 9:58 AM EST AGE/SEX: 32 years / Female INDICATIONS: Transischemic attack. CLINICAL DATA: This is the patient's initial encounter. Patient reports that signs and symptoms have been present for 1 day and indicates a pain score of 0/10. MEDICAL/SURGICAL HISTORY: . Bipolar. Endocarditis. Seizure. TIA. . Heart valve replacement COMPARISON: [facility], CTA CAROTID ARTERIES W 3D RECON, 03/06/2016. . VELOCITY PARAMETERS: ICA/CCA Ratio: Right 1.7 , Left 1.5 ICA: Right 112 cm/sec, Left 103 cm/sec CCA: Right 64 cm/sec, Left 67 cm/sec ECA: Right 57 cm/sec, Left 56 cm/sec Vertebral: Right 57 cm/sec antegrade, Left 47 cm/sec antegrade FINDINGS: Right Carotid: No significant plaque is visualized.The waveforms are within normal limits. Left Carotid: No significant plaque is visualized. The waveforms are within normal limits. Other: None. CONCLUSION: No evidence of flow-limiting carotid stenosis. Electronically signed by: Daniel Jacobson MD 06/22/2018 10:00 AM EST
--- NOTE | 2018-06-22 11:32 | ECHRPT ---
Indication: CVA/TIA CONCLUSIONS No regional wall motion abnormalities are present. Normal left ventricular size. Wall thickness is measured at the upper limits of normal. The left ventricular systolic function is normal with an estimated ejection fraction in the range of 55-60%. Mitral valve bioprosthesis. Mild to moderate mitral valve regurgitation. No evidence for mitral st enosis. There is trace to mild tricuspid valve regurgitation. BP: / HR: Rhythm: Sinus MEASUREMENTS (Male / Female) Normal Values Technical Quality:Fair 2D ECHO LV Diastolic Diameter PLAX 4.2 cm 4.2 - 5.9 / 3.9 - 5.3 cm LV Systolic Diameter PLAX 3.0 cm IVS Diastolic Thickness 0.9 cm 0.6 - 1.0 / 0.6 - 0.9 cm LVPW Diastolic Thickness 0.9 cm 0.6 - 1.0 / 0.6 - 0.9 cm LV Relative Wall Thickness 0.4 RV Internal Dim ED PLAX 2.8 cm LVOT Diameter 1.8 cm Aortic Root Diameter 2.6 cm LA Systolic Diameter LX 3.2 cm 3.0 - 4.0 / 2.7 - 3.8 cm M-MODE AV Cusp Separation MM 1.5 cm DOPPLER AV Peak Velocity 149.0 cm/s AV Peak Gradient 8.9 mmHg LVOT Peak Velocity 110.0 cm/s LVOT Peak Gradient 4.8 mmHg AV Area Cont Eq pk 1.9 cm MV Peak Velocity 247.0 cm/s MV Peak Gradient 24.4 mmHg MV Mean Velocity 186.8 cm/s MV Mean Gradient 16.0 mmHg MV Area PHT 3.3 cm MR Peak Velocity 565.5 cm/s MR Peak Gradient 127.9 mmHg LV E' Lateral Velocity 10.9 cm/s LV E' Septal Velocity 13.9 cm/s TR Peak Velocity 364.0 cm/s TR Peak Gradient 53.0 mmHg Right Atrial Pressure 10.0 mmHg Pulmonary Artery Systolic Pressu 63.0 mmHg Right Ventricular Systolic Press 63.0 mmHg PV Peak Velocity 65.8 cm/s PV Peak Gradient 1.7 mmHg FINDINGS LEFT VENTRICLE No regional wall motion abnormalities are present. Normal left ventricular size. Wall thickness is measured at the upper limits of normal. The left ventricular systolic function is normal with an estimated ejection fraction in the range of 55-60%. RIGHT VENTRICLE Normal right ventricular size and systolic function. LEFT ATRIUM The left atrial size is normal. RIGHT ATRIUM The right atrial size is normal. ATRIAL SEPTUM A possible atrial level shunt is demonstrated by color flow Doppler interrogation. AORTA The aortic root and proximal ascending aorta are normal in size on limited imaging. MITRAL VALVE Mitral valve bioprosthesis. Mild to moderate mitral valve regurgitation. No evidence for mitral st enosis. AORTIC VALVE Trileaflet aortic valve. No aortic valve stenosis or regurgitation. TRICUSPID VALVE There is trace to mild tricuspid valve regurgitation. PULMONARY VALVE Trace pulmonary valve regurgitation. VESSELS The inferior vena cava is normal in size. PERICARDIUM No pericardial effusion. Vinay Cordova MD (Electronically Signed) Final Date:22 June 2018 11:31
--- NOTE | 2018-06-22 11:40 | MR ---
EXAM DATE: 06/22/2018 11:35 AM EST AGE/SEX: 32 years / Female INDICATIONS: TIA. CLINICAL DATA: This is the patient's initial encounter. Patient reports that signs and symptoms have been present for 2 days and indicates a pain score of 0/10. MEDICAL/SURGICAL HISTORY: Transient ischemic attack. CABG. [place] [facility] [place]. . TECHNIQUE: 3D [id number] MRA was performed. Source images, multiplanar STS MIP, and 3D volum e MIP reconstructions were reviewed. FINDINGS: There is excellent visualization of the major intracranial arteries out to the second-order branch ve ssels. There is no evidence for aneurysm, vessel truncation or stenosis, and no evidence for vascula r malformation. CONCLUSION: 1. Negative MRA Cow ([place] [employer] [place]) non contrast. Electronically signed by: Ras Stinson MD 06/22/2018 11:38 AM EST
--- NOTE | 2018-06-22 11:42 | MR ---
EXAM DATE: 06/22/2018 11:35 AM EST AGE/SEX: 32 years / Female INDICATIONS: TIA. CLINICAL DATA: This is the patient's initial encounter. Patient reports that signs and symptoms have been present for 2 days and indicates a pain score of 0/10. MEDICAL/SURGICAL HISTORY: Transient ischemic attack. CABG. COMPARISON: [facility] – [place], MRA HEAD W/O CONTRAST, 06/22/2018. . TECHNIQUE: Multiplanar, multisequence examination of the brain was performed without contrast. FINDINGS: Cerebrum: The ventricles are normal for age. No evidence of midline shift, mass lesion, hemorrhage or acute infarction. No extraaxial fluid collections are seen. The pituitary gland and suprasellar cistern are normal in configuration. White Matter: The exam does demonstrate some subtle patchy T2 signal within the white matter. This i s somewhat lateral in distribution for ischemic demyelinative change. There are areas of abnormal sig nal in the region of the subcortical U fibers. In the appropriate clinical setting this could suggest possible MS. Posterior Fossa: The cerebellum and brainstem are intact. The 4th ventricle is midline. The cerebel lopontine angle is unremarkable. The cerebellar tonsils are normal in position. Diffusion Imaging: No focal areas of restricted diffusion are seen. No evidence of acute infarction . Extracranial: The visualized portions of the orbits and paranasal sinuses are unremarkable. CONCLUSION: 1. No findings to indicate acute cortical infarction seen. 2. Patchy areas of abnormal T2 signal seen suggesting possible demyelinating process such as MS. Electronically signed by: Ras Stinson MD 06/22/2018 11:41 AM EST
--- NOTE | 2018-06-22 14:22 | ECG ---
Date Performed: 06/21/2018 Time Performed: 19:30:02 PTAGE: 32 years EKG: SINUS TACHYCARDIA INDETERMINATE AXIS RIGHT BUNDLE BRANCH BLOCK ABNORMAL ECG Compared to PREVIOUS TRACING the patient is now tachycardic PREVIOUS TRACIN12/22/17 DOCTOR: Poly Quinones Interpretating Date/Time 06/22/2018 14:21:38
--- NOTE | 2018-06-22 14:27 | P.PNIM ---
Subjective Interval history: Patient reports she is feeling great. No new neurological symptoms. Physical Exam Vital signs: Vital Signs 06/21/18 19:27 06/21/18 19:39 06/21/18 20:05 Temperature 98.6 F Pulse Rate 119 H 119 H 117 H Respiratory Rate 16 16 Blood Pressure 147/101 H 134/88 Pulse Oximetry 94 L 95 95 06/21/18 21:32 06/22/18 01:17 06/22/18 04:46 Temperature 97.7 F 98.1 F Pulse Rate 108 H 97 H 88 Respiratory Rate 16 18 18 Blood Pressure 132/95 H 131/91 H 136/98 H Pulse Oximetry 96 98 99 06/22/18 04:47 06/22/18 08:00 06/22/18 08:16 Temperature 98.0 F Pulse Rate 119 H 98 H Respiratory Rate 20 Blood Pressure 138/93 H Pulse Oximetry 99 99 06/22/18 12:00 Temperature Pulse Rate 75 Respiratory Rate 17 Blood Pressure 136/97 H Pulse Oximetry 100 Intake & Output 06/21/18 06/22/18 06/22/18 18:59 06:59 18:59 Intake Total 1999 Balance 1999 Weight 60.328 kg Intake: IV 1999 NS Inj 1,000 ML @ 1000 mls/hr 1999 IV.SIG BOLUS CELESTINE Rx#:[id number] Other: # Voids 2 Date of Last Bowel Movement 06/21/18 06/21/18 Narrative: GENERAL: This is a well-nourished, well-developed patient, in no apparent distress. CARDIOVASCULAR: Normal rate and regular rhythm without murmurs, gallops, or rubs. RESPIRATORY: Good respiratory efforts. Breath sounds equal and clear to auscultation bilaterally. GASTROINTESTINAL: Abdomen soft, non-tender, non-distended. Normal active bowel sounds MUSCULOSKELETAL: Extremities without cyanosis, or edema. NEURO: Alert & Oriented x4 to person, place, time, situation. Moves all ext x4 PSYCH: Appropriate mood and affect. Results - Labs CBC & Chem 7: 06/21/18 19:30 06/21/18 19:30 Laboratory Results - last 24 hr 06/21/18 06/21/18 06/21/18 19:30 19:30 19:30 WBC 7.5 RBC 5.17 Hgb 12.9 Hct 39.6 MCV 76.6 L MCH 24.9 L MCHC 32.5 RDW 17.6 H Plt Count 178 MPV 10.0 Neut % (Auto) 74.3 H Lymph % (Auto) 17.4 Grand % (Auto) 7.3 Eos % (Auto) 0.1 Baso % (Auto) 0.9 Neut # (Auto) 5.6 Lymph # (Auto) 1.3 Grand # (Auto) 0.6 Eos # (Auto) 0.0 Baso # (Auto) 0.1 WBC Differential . Differential Comment Auto diff final PT 11.3 INR 1.1 APTT 27.8 Sodium 139 Potassium 3.9 Chloride 105 Carbon Dioxide 24.8 Anion Gap 9 BUN 14 Creatinine 1.16 H Estimated GFR 66 L POC Glucose Random Glucose 104 Calcium 8.8 Total Bilirubin 0.3 AST 28 ALT 42 Alkaline Phosphatase 78 Total Creatine Kinase CK-MB (CK-2) Troponin I Total Protein 8.5 H Albumin 4.0 Triglycerides Cholesterol LDL Cholesterol, Calc HDL Cholesterol Cholesterol/HDL Ratio Urine Color Urine Clarity Urine pH Ur Specific [place] Urine Protein Urine Glucose (UA) Urine Ketones Urine Occult Blood Urine Nitrate Urine Bilirubin Urine Urobilinogen Ur Leukocyte Esterase Urine RBC Urine WBC Hyaline Casts Urine Mucus Micro UA Comment Ur Microscopic Review Urine Culture Comments Urine Opiates Screen Ur Barbiturates Screen Valproic Acid Ur Amphetamines Screen U Benzodiazepines Scrn Urine Cocaine Screen U Cannabinoids Screen 06/21/18 06/21/18 06/21/18 19:30 19:30 19:48 WBC RBC Hgb Hct MCV MCH MCHC RDW Plt Count MPV Neut % (Auto) Lymph % (Auto) Grand % (Auto) Eos % (Auto) Baso % (Auto) Neut # (Auto) Lymph # (Auto) Grand # (Auto) Eos # (Auto) Baso # (Auto) WBC Differential Differential Comment PT INR APTT Sodium Potassium Chloride Carbon Dioxide Anion Gap BUN Creatinine Estimated GFR POC Glucose 115 H Random Glucose Calcium Total Bilirubin AST ALT Alkaline Phosphatase Total Creatine Kinase 139 CK-MB (CK-2) 1.7 Troponin I Less than 0.02 L Total Protein Albumin Triglycerides Cholesterol LDL Cholesterol, Calc HDL Cholesterol Cholesterol/HDL Ratio Urine Color Urine Clarity Urine pH Ur Specific [place] Urine Protein Urine Glucose (UA) Urine Ketones Urine Occult Blood Urine Nitrate Urine Bilirubin Urine Urobilinogen Ur Leukocyte Esterase Urine RBC Urine WBC Hyaline Casts Urine Mucus Micro UA Comment Ur Microscopic Review Urine Culture Comments Urine Opiates Screen Ur Barbiturates Screen Valproic Acid 29 L Ur Amphetamines Screen U Benzodiazepines Scrn Urine Cocaine Screen U Cannabinoids Screen 06/21/18 06/21/18 06/22/18 19:50 19:50 04:33 WBC RBC Hgb Hct MCV MCH MCHC RDW Plt Count MPV Neut % (Auto) Lymph % (Auto) Grand % (Auto) Eos % (Auto) Baso % (Auto) Neut # (Auto) Lymph # (Auto) Grand # (Auto) Eos # (Auto) Baso # (Auto) WBC Differential Differential Comment PT INR APTT Sodium Potassium Chloride Carbon Dioxide Anion Gap BUN Creatinine Estimated GFR POC Glucose Random Glucose Calcium Total Bilirubin AST ALT Alkaline Phosphatase Total Creatine Kinase CK-MB (CK-2) Troponin I Total Protein Albumin Triglycerides 127 Cholesterol 165 LDL Cholesterol, Calc 74 HDL Cholesterol 65.3 H Cholesterol/HDL Ratio 2.52 Urine Color Yellow Urine Clarity Clear Urine pH 5.0 Ur Specific [place] 1.016 Urine Protein 30 H Urine Glucose (UA) Negative Urine Ketones Negative Urine Occult Blood Negative Urine Nitrate Negative Urine Bilirubin Negative Urine Urobilinogen Less than 2 Ur Leukocyte Esterase Negative Urine RBC Less than 1 Urine WBC 1 Hyaline Casts 8 Urine Mucus Few H Micro UA Comment Culture not ind Ur Microscopic Review Not Reportable Urine Culture Comments Culture not ind Urine Opiates Screen Neg Ur Barbiturates Screen Neg Valproic Acid Ur Amphetamines Screen Neg U Benzodiazepines Scrn Neg Urine Cocaine Screen Neg U Cannabinoids Screen Neg Microbiology 06/21/18 19:35 Blood - Peripheral Aerobic Blood Culture - Preliminary No growth in 1 day 06/21/18 19:35 Blood - Peripheral Anaerobic Blood Culture - Preliminary No growth in 1 day 06/21/18 19:35 Blood - Peripheral Aerobic Blood Culture - Preliminary No growth in 1 day 06/21/18 19:35 Blood - Peripheral Anaerobic Blood Culture - Preliminary No growth in 1 day - Imaging Impressions Head CT 06/21/18 19:29 CONCLUSION: 1. Remote right basal ganglia lacunar infarct. 2. No acute intracranial abnormality. . Carotid Doppler Study 06/22/18 00:00 CONCLUSION: No evidence of flow-limiting carotid stenosis. Head MRI 06/22/18 00:00 CONCLUSION: 1. No findings to indicate acute cortical infarction seen. 2. Patchy areas of abnormal T2 signal seen suggesting possible demyelinating process such as MS. Head MRA 06/22/18 07:04 CONCLUSION: 1. Negative MRA Cow ([employer] [employer]) non contrast. Assessment and Plan - Plan 32-year-old female with: 1. Altered mental status/syncope versus seizure: No further symptoms. Unclear etiology Patient with history of TIA/CVA Head CT significant for remote right basal ganglia lacunar infarct without acute intracranial abnormality Carotid ultrasound negative Per MRI report: 1. No findings to indicate acute cortical infarction seen. 2. Patchy areas of abnormal T2 signal seen suggesting possible demyelinating process such as MS. EEG pending as patient with history of previous seizure and no witnesses of the event Neurology consulted, appreciate recommendations Echo showed preserved LVEF, mitral valve bioprosthesis. Mild to moderate mitral valve regurgitation. No evidence for mitral stenosis. There is trace to mild tricuspid valve regurgitation 2. Bipolar disorder Continue home Depakote. Patient reports she was on Seroquel and was it discontinued yesterday because of restless leg symptoms. She was switched to amitriptyline but has not taken any of it yet. 3. History of IV drug abuse Last use of IV drugs was 2014 Patient reports taking p.o. Dilaudid approximately 1 week ago Patient previously counseled to not use any Narcotics. FEN Regular diet Electrolytes: Monitor and replete as needed Discharge Planning: Awaiting neuro input.
--- NOTE | 2018-06-22 15:04 | P.CONNEU ---
History of Present Illness Service: Neurology Primary Care Provider: No Primary Care Physician Chief Complaint: TIA versus seizure History of Present Illness: 32-year-old female admitted for alteration in mentation, syncopal type episode. States she is not exactly sure what happened does remember being dizzy or have any focal weakness. Denies any headache, sensory symptoms. Feels well at present. CT brain scan no acute lesion. History of previous drug related endocarditis staph aureus septicemia 2013 causing strokes which resulted in visual loss in the left eye left-sided weakness which she is recovered from quite well. She had a bovine mitral valve replacement. She is supposed to take aspirin daily but has not been doing so. Review of Systems All other systems reviewed negative except as stated in [facility] - History History Provided By: Patient - Medical History Medical History: Medical History (Last Updated 06/21/18 @ 22:21 by Sherice Olson MD) TIA (transient ischemic attack) (Acute) Seizure (Acute) Endocarditis (Acute) Bipolar disorder - Surgical History Surgical History: Surgical History (Last Reviewed 06/21/18 @ 22:21 by Sherice Olson MD) Heart valve replaced (Acute) - Family History Family History: Family History (Last Updated 06/21/18 @ 22:22 by Sherice Olson MD) Other Diabetes mellitus - Tobacco History Second Hand Smoke Exposure: No Tobacco Use In Past 30 Days: No Smoking Status: Former smoker Tobacco Type: Cigarettes - Alcohol History How Often Do You Have a Drink Containing Alcohol: 2 to 4 times a month - Substance Use History Substance History: Past History - Substance Use Type Opiates Status: Active Route Used: By Mouth Reason for Use: Calm Down Crack/Cocaine Status: Sustained Remission Marijuana Status: Active Route Used: Inhalation Reason for Use: Calm Down - Travel History Recent Travel in the [place] Within the Last 8 Weeks: No Recent Travel Out of the Country Within the Last 8 Weeks: No - Immunization History Tetanus Immunization: >5 Years Medications and Allergies Active Medications: Active Medications Dextrose (D50w Vial) 50 ml IV.PUSH UNSCH PRN PRN Reason: per Hypoglycemic Protocol Divalproex Sodium (Depakote Dr) 250 mg PO BID CELESTINE Last Admin: 06/22/18 08:40 Dose: 250 mg Glucagon (Glucagon Inj) 1 mg OTHER UNSCH PRN PRN Reason: per Hypoglycemic Protocol Insulin Aspart (Novolog Insulin Correctional Sugar Inj) 0 unit SQ ACHS PRN; Protocol PRN Reason: Per Protocol Sodium Chloride (Ns Flush) 2 ml IV.FLUSH PRN PRN PRN Reason: FLUSH AFTER USING IV ACCESS Allergies Allergy/AdvReac Type Severity Reaction Status Date / Time No Known Allergies Allergy Verified 06/21/18 19:36 Home Medications Medication Instructions Recorded Confirmed Type amitriptyline 25 mg PO DAILY 06/21/18 06/21/18 History divalproex [Depakote] 250 mg PO BID 06/21/18 06/21/18 History Exam Vital signs: Vital Signs 06/21/18 19:27 06/21/18 19:39 06/21/18 20:05 Temperature 98.6 F Pulse Rate 119 H 119 H 117 H Respiratory Rate 16 16 Blood Pressure 147/101 H 134/88 Pulse Oximetry 94 L 95 95 06/21/18 21:32 06/22/18 01:17 06/22/18 04:46 Temperature 97.7 F 98.1 F Pulse Rate 108 H 97 H 88 Respiratory Rate 16 18 18 Blood Pressure 132/95 H 131/91 H 136/98 H Pulse Oximetry 96 98 99 06/22/18 04:47 06/22/18 08:00 06/22/18 08:16 Temperature 98.0 F Pulse Rate 119 H 98 H Respiratory Rate 20 Blood Pressure 138/93 H Pulse Oximetry 99 99 06/22/18 12:00 Temperature Pulse Rate 75 Respiratory Rate 17 Blood Pressure 136/97 H Pulse Oximetry 100 Intake & Output 06/21/18 06/22/18 06/22/18 18:59 06:59 18:59 Intake Total 1999 Balance 1999 Weight 60.328 kg Intake: IV 1999 NS Inj 1,000 ML @ 1000 mls/hr 1999 IV.SIG BOLUS CELESTINE Rx#:[id number] Other: # Voids 2 Date of Last Bowel Movement 06/21/18 06/21/18 Narrative: GENERAL: in NAD, SKIN: Warm and dry. HEAD: Atraumatic. Normocephalic. ENT: No nasal bleeding or discharge. Mucous membranes pink and moist. NECK: Trachea midline. No JVD. CARDIOVASCULAR: Regular rate and rhythm. RESPIRATORY: No accessory muscle use. GASTROINTESTINAL: Abdomen soft, non-tender, nondistended. MUSCULOSKELETAL: Extremities without clubbing, cyanosis, or edema. NEUROLOGICAL: Awake and alert. Oriented x3 no aphasia, fluent articulate, No facial asymmetry, OU 3-2mm, eomi, left eye vision loss, No drift, Motor grossly within normal limits. Five out of 5 muscle strength in the arms and legs. Tone normal in all 4 limbs, sensory normal, reflex symmetric plantarflex her no clonus PSYCHIATRIC: Appropriate mood and affect; insight and judgment normal. - Constitutional no acute distress - Routine HEENT Exam Head: Present: normocephalic Eye: Present: EOMI Results - Labs CBC & Chem 7: 06/21/18 19:30 06/21/18 19:30 Labs: Laboratory Results - last 24 hr 06/21/18 06/21/18 06/21/18 19:30 19:30 19:30 WBC 7.5 RBC 5.17 Hgb 12.9 Hct 39.6 MCV 76.6 L MCH 24.9 L MCHC 32.5 RDW 17.6 H Plt Count 178 MPV 10.0 Neut % (Auto) 74.3 H Lymph % (Auto) 17.4 [place] % (Auto) 7.3 Eos % (Auto) 0.1 Baso % (Auto) 0.9 Neut # (Auto) 5.6 Lymph # (Auto) 1.3 [place] # (Auto) 0.6 Eos # (Auto) 0.0 Baso # (Auto) 0.1 WBC Differential . Differential Comment Auto diff final PT 11.3 INR 1.1 APTT 27.8 Sodium 139 Potassium 3.9 Chloride 105 Carbon Dioxide 24.8 Anion Gap 9 BUN 14 Creatinine 1.16 H Estimated GFR 66 L POC Glucose Random Glucose 104 Calcium 8.8 Total Bilirubin 0.3 AST 28 ALT 42 Alkaline Phosphatase 78 Total Creatine Kinase CK-MB (CK-2) Troponin I Total Protein 8.5 H Albumin 4.0 Triglycerides Cholesterol LDL Cholesterol, Calc HDL Cholesterol Cholesterol/HDL Ratio Urine Color Urine Clarity Urine pH Ur Specific [place] Urine Protein Urine Glucose (UA) Urine Ketones Urine Occult Blood Urine Nitrate Urine Bilirubin Urine Urobilinogen Ur Leukocyte Esterase Urine RBC Urine WBC Hyaline Casts Urine Mucus Micro UA Comment Ur Microscopic Review Urine Culture Comments Urine Opiates Screen Ur Barbiturates Screen Valproic Acid Ur Amphetamines Screen U Benzodiazepines Scrn Urine Cocaine Screen U Cannabinoids Screen 06/21/18 06/21/18 06/21/18 19:30 19:30 19:48 WBC RBC Hgb Hct MCV MCH MCHC RDW Plt Count MPV Neut % (Auto) Lymph % (Auto) [place] % (Auto) Eos % (Auto) Baso % (Auto) Neut # (Auto) Lymph # (Auto) [place] # (Auto) Eos # (Auto) Baso # (Auto) WBC Differential Differential Comment PT INR APTT Sodium Potassium Chloride Carbon Dioxide Anion Gap BUN Creatinine Estimated GFR POC Glucose 115 H Random Glucose Calcium Total Bilirubin AST ALT Alkaline Phosphatase Total Creatine Kinase 139 CK-MB (CK-2) 1.7 Troponin I Less than 0.02 L Total Protein Albumin Triglycerides Cholesterol LDL Cholesterol, Calc HDL Cholesterol Cholesterol/HDL Ratio Urine Color Urine Clarity Urine pH Ur Specific [place] Urine Protein Urine Glucose (UA) Urine Ketones Urine Occult Blood Urine Nitrate Urine Bilirubin Urine Urobilinogen Ur Leukocyte Esterase Urine RBC Urine WBC Hyaline Casts Urine Mucus Micro UA Comment Ur Microscopic Review Urine Culture Comments Urine Opiates Screen Ur Barbiturates Screen Valproic Acid 29 L Ur Amphetamines Screen U Benzodiazepines Scrn Urine Cocaine Screen U Cannabinoids Screen 06/21/18 06/21/18 06/22/18 19:50 19:50 04:33 WBC RBC Hgb Hct MCV MCH MCHC RDW Plt Count MPV Neut % (Auto) Lymph % (Auto) [place] % (Auto) Eos % (Auto) Baso % (Auto) Neut # (Auto) Lymph # (Auto) [place] # (Auto) Eos # (Auto) Baso # (Auto) WBC Differential Differential Comment PT INR APTT Sodium Potassium Chloride Carbon Dioxide Anion Gap BUN Creatinine Estimated GFR POC Glucose Random Glucose Calcium Total Bilirubin AST ALT Alkaline Phosphatase Total Creatine Kinase CK-MB (CK-2) Troponin I Total Protein Albumin Triglycerides 127 Cholesterol 165 LDL Cholesterol, Calc 74 HDL Cholesterol 65.3 H Cholesterol/HDL Ratio 2.52 Urine Color Yellow Urine Clarity Clear Urine pH 5.0 Ur Specific [place] 1.016 Urine Protein 30 H Urine Glucose (UA) Negative Urine Ketones Negative Urine Occult Blood Negative Urine Nitrate Negative Urine Bilirubin Negative Urine Urobilinogen Less than 2 Ur Leukocyte Esterase Negative Urine RBC Less than 1 Urine WBC 1 Hyaline Casts 8 Urine Mucus Few H Micro UA Comment Culture not ind Ur Microscopic Review Not Reportable Urine Culture Comments Culture not ind Urine Opiates Screen Neg Ur Barbiturates Screen Neg Valproic Acid Ur Amphetamines Screen Neg U Benzodiazepines Scrn Neg Urine Cocaine Screen Neg U Cannabinoids Screen Neg - Imaging Impressions Head CT 06/21/18 19:29 CONCLUSION: 1. Remote right basal ganglia lacunar infarct. 2. No acute intracranial abnormality. . Carotid Doppler Study 06/22/18 00:00 CONCLUSION: No evidence of flow-limiting carotid stenosis. Head MRI 06/22/18 00:00 CONCLUSION: 1. No findings to indicate acute cortical infarction seen. 2. Patchy areas of abnormal T2 signal seen suggesting possible demyelinating process such as MS. Head MRA 06/22/18 07:04 CONCLUSION: 1. Negative MRA [place] ([place] [facility]) non contrast. Review/Management - Diagnosis (1) Chronic arterial ischemic stroke Code(s): I69.30 - Unspecified sequelae of cerebral infarction Status: Acute Current Visit: Yes (2) Syncope and collapse Code(s): R55 - Syncope and collapse Status: Acute Current Visit: Yes (3) Seizure Code(s): R56.9 - Unspecified convulsions Status: Acute Current Visit: Yes (4) Heart valve replaced Code(s): Z95.2 - Presence of prosthetic heart valve Status: Acute Current Visit: Yes - Review/Management Plan: Unclear exactly what happened to the patient. Could have been a seizure versus cardiac. Unlikely to be stroke Neuroimaging negative for any acute lesion MRI brain no significant vaso- occlusive disease no carotid disease Recommendations Consider cardiology evaluation for syncope Follow-up EEG She should also take aspirin daily with a history of previous stroke bovine mitral valve For the possibility of seizure we will simply increase her Depakote ER that she takes for bipolar to 500 twice daily her levels were noted to be little bit low on admission Discharge planning No driving, operating any heavy machinery or dangerous machinery, swimming alone for at least 6 months of being seizure, spell free.
[2018-06-22 15:41] LABS: Hemoglobin A1c 5.9 % (4.3-6.0)
[2018-06-22] MEDS: Divalproex 250 MG DR Tablet PO SCH (20:32)
--- NOTE | 2018-06-22 21:15 | MG ---
cc: Tucker Zapata MD STUDY DATE: 06/22/2018 ELECTROENCEPHALOGRAM RECORD NUMBER: [id number] DESCRIPTION: Well-formed alpha activity 8-9 Hz, 20-50 microvolts, low-amplitude beta in the frontal channels. Good anterior to posterior gradient. Eye movement and blink artifact noted at times. Reasonable driving with photic stimulation. Single lead EKG showing sinus rhythm. INTERPRETATION: Normal awake electroencephalogram. Clinical correlation. Tucker Zapata MD MG/em , 08:51 PM , 08:56 PM
--- NOTE | 2018-06-23 05:40 | P.PN ---
Subjective Interval history: F/u AMS. Patient is doing well denies any symptoms. States she did not have syncope. Neurology recommendations reviewed. Telemetry overnight showed Mobitz type I patient was asymptomatic. Consulted cardiology discussed with Dr. Higgins who felt symptoms likely related to seizure. He has cleared patient for discharge Physical Exam Vital signs: Vital Signs 06/22/18 08:00 06/22/18 08:16 06/22/18 12:00 Temperature 98.0 F Pulse Rate 119 H 98 H 75 Respiratory Rate 20 17 Blood Pressure 138/93 H 136/97 H Pulse Oximetry 99 100 06/22/18 16:00 06/22/18 19:57 06/22/18 20:00 Temperature 98.1 F 98.4 F Pulse Rate 86 81 78 Respiratory Rate 18 14 Blood Pressure 127/94 H 131/91 H Pulse Oximetry 100 99 06/22/18 23:53 06/23/18 04:00 Temperature 97.8 F 97.6 F Pulse Rate 70 72 Respiratory Rate 14 14 Blood Pressure 121/83 127/89 Pulse Oximetry 97 99 Intake & Output 06/22/18 06/22/18 06/23/18 06:59 18:59 06:59 Intake Total 1999 960 / 960 Balance 1999 960 / 960 Weight 60.328 kg Intake: IV 1999 NS Inj 1,000 ML @ 1000 mls/hr 1999 IV.SIG BOLUS CELESTINE Rx#:[id number] Oral 960 / 960 Other: # Voids 2 4 Date of Last Bowel Movement 06/21/18 06/21/18 06/21/18 Narrative: GENERAL: in NAD, SKIN: Warm and dry. CARDIOVASCULAR: Regular rate and rhythm. RESPIRATORY: No accessory muscle use. GASTROINTESTINAL: Abdomen soft, non-tender, nondistended. MUSCULOSKELETAL: Extremities without clubbing, cyanosis, or edema. NEUROLOGICAL: Awake and alert. Oriented x3 no aphasia, No facial asymmetry, No drift, Motor grossly within normal limits. Five out of 5 muscle strength in the arms and legs. Tone normal in all 4 limbs, sensory normal, reflex symmetric plantarflex no clonus PSYCHIATRIC: Appropriate mood and affect; insight and judgment normal. Results - Labs CBC & Chem 7: 06/21/18 19:30 06/21/18 19:30 Laboratory Results - last 24 hr 06/22/18 06/22/18 04:33 22:35 POC Glucose 115 H Hemoglobin A1c 5.9 Microbiology 06/21/18 19:35 Blood - Peripheral Aerobic Blood Culture - Preliminary No growth in 1 day 06/21/18 19:35 Blood - Peripheral Anaerobic Blood Culture - Preliminary No growth in 1 day 06/21/18 19:35 Blood - Peripheral Aerobic Blood Culture - Preliminary No growth in 1 day 06/21/18 19:35 Blood - Peripheral Anaerobic Blood Culture - Preliminary No growth in 1 day - Imaging ITS Impressions Head CT 06/21/18 19:29 CONCLUSION: 1. Remote right basal ganglia lacunar infarct. 2. No acute intracranial abnormality. . Carotid Doppler Study 06/22/18 00:00 CONCLUSION: No evidence of flow-limiting carotid stenosis. Head MRI 06/22/18 00:00 CONCLUSION: 1. No findings to indicate acute cortical infarction seen. 2. Patchy areas of abnormal T2 signal seen suggesting possible demyelinating process such as MS. Head MRA 06/22/18 07:04 CONCLUSION: 1. Negative MRA Cow ([place] [facility] [place]) non contrast. - Procedures none Assessment and Plan - Plan 32-year-old female with: 1. Altered mental status/syncope versus seizure: No further symptoms. Unclear etiology. At this time, she is neurologically intact and stable Patient with history of TIA/CVA Head CT significant for remote right basal ganglia lacunar infarct without acute intracranial abnormality Carotid ultrasound negative Per MRI report: 1. No findings to indicate acute cortical infarction seen. 2. Patchy areas of abnormal T2 signal seen suggesting possible demyelinating process such as MS. EEG negative for seizure Neurology consulted, appreciate recommendations. Ct asa, increase depakote to BID and consider card consult Echo showed preserved LVEF, mitral valve bioprosthesis. Mild to moderate mitral valve regurgitation. No evidence for mitral stenosis. There is trace to mild tricuspid valve regurgitation Discussed with cardiology in light of Mobitz type I possible syncope, he felt symptoms related to seizure no definite syncope. Cleared for discharge 2. Bipolar disorder Continue home Depakote. Patient reports she was on Seroquel and was discontinued because of restless leg symptoms. She was switched to amitriptyline but has not taken any of it yet. 3. History of IV drug abuse Last use of IV drugs was 2014 Patient reports taking p.o. Dilaudid approximately 1 week ago Patient previously counseled to not use any Narcotics. FEN Regular diet Electrolytes: Monitor and replete as needed Preg test neg Discharge Planning: Discharge patient to home Condition on discharge: Improved Regular Diet as tolerated Ad [place]adine activity, no driving, no swimming alone, no climbing heights and no carrying young children Rx written: Aspirin and Depakote increased to 500 mg twice a day Follow-up with primary care physician
[2018-06-23 08:12] VITALS: RESP 16
[2018-06-23] MEDS: Divalproex 250 MG DR Tablet PO SCH (09:32)
[2018-06-23 11:31] VITALS: BP 121/91; PULSE 86; TEMP 98; O2SAT 100
--- NOTE | 2018-06-23 16:07 | MB ---
cc: Ed Higgins DO DATE: 06/23/2018 REASON FOR CONSULTATION: Questionable syncopal episode. HISTORY OF PRESENT ILLNESS: Selma Arias is a pleasant 32-year-old female who presented to [facility] after a neurological episode. Apparently, she was helping her grandma and got groceries and then brought her kid inside. Her kid had wet her diaper and so she was changing her at the time. She was in the bathroom and had turned on the water and then she is unsure what happened. She felt like she was frozen and unable to speak. Apparently, her son grabbed the grandmother and the grandmother came in and found her standing at the sink but unable to move and unresponsive. She pulled her to a chair nearby and called EMS. Upon EMS's arrival, Selma started coming to and realizing what was going on, but did not remember anything during the episode. She denies any chest pain, shortness of breath, palpitations or lightheadedness before, during, or after the episode. She was seen by Neurology and there was a question of possible seizure versus transient ischemic attack. She underwent an MRI, which showed no defects. Neurology asked me to see her for consideration of syncope. She states that she had another episode similar to this where she was going to wash some dishes and had turned on the water. Apparently, her boyfriend had come home and found her sitting on the floor staring off into space. He attempted to talk to her multiple times without her answering and when she finally answered, she was confused on why he was there. PAST MEDICAL HISTORY: 1. Transient ischemic attack. 2. Seizure. 3. Endocarditis. 4. Bipolar disorder. PAST SURGICAL HISTORY: Mitral valve replacement (01/13/2014) with a 27 mm bovine pericardial Magna Ease valve. ALLERGIES: NO KNOWN DRUG ALLERGIES. MEDICATIONS: 1. Amitriptyline 25 mg daily. 2. Depakote 250 mg b.i.d. FAMILY HISTORY: Denies premature coronary artery disease or sudden cardiac within the family. SOCIAL HISTORY: The patient is a former cigarette smoker, but quit a number of years ago. She rarely drinks alcohol. She previously used crack cocaine. She continues to use marijuana. Occasionally, she will use opiates. REVIEW OF SYSTEMS: Fourteen systems were reviewed including osteopathic. Pertinent positives and negatives above, otherwise negative. PHYSICAL EXAMINATION: VITAL SIGNS: Temperature 98.0, heart rate 86, blood pressure 121/91, respirations 16, pulse oximetry 100% on room air. GENERAL: The patient appears well, in no acute distress. Alert, awake, oriented x 3. HEENT: Extraocular muscles intact. Mucous membranes moist. NECK: Supple. No JVD at 45 degrees. No carotid bruits heard bilaterally. Carotid upstroke is brisk in nature. HEART: Regular rate and rhythm. Positive first and second heart sounds with no noted murmurs, gallops or rubs. LUNGS: Clear to auscultation bilaterally. No wheezes, rales or rhonchi. ABDOMEN: Soft, nontender, nondistended. No organomegaly noted. EXTREMITIES: Show no clubbing, cyanosis or edema. Femoral and distal pulses intact bilaterally. NEUROLOGIC: No focal deficits. SKIN: Warm, dry and intact. OSTEOPATHIC: No kyphoscoliosis, lordosis or paraspinal tender points. LABORATORY DATA: Hemoglobin 12.9, hematocrit 39.6, platelets 178. Potassium 3.9, BUN 14, creatinine 1.16. Troponin less than 0.02. Electrocardiogram (06/21/2018 at 1930): Sinus tachycardia, right bundle branch block. IMPRESSION: 1. Questionable neurological symptoms possibly due to a seizure. 2. History of mitral valve replacement with a bioprosthetic valve. 3. Second-degree Mobitz type 1 rhythm overnight. 4. History of marijuana use. 5. History of crack cocaine abuse. 6. History of Dilaudid abuse. RECOMMENDATIONS: 1. Ms. Arias' episode was not syncopal in nature as it appears that both times she was standing or sitting and not slumped over or passed out. 2. Ultimately, during these episodes there is concern for possible seizures and I would have this further worked up by Neurology from their standpoint. Apparently, per the hospitalist group, they have increased her Depakote. 3. She does have a history of a mitral valve prosthesis and we continue her on aspirin 81 mg daily. 4. Overnight, she did have 2 short episodes of second-degree Mobitz type 1 AV block. This is most likely due to being young as well as increased vagal tone and no further workup is necessary from that standpoint. 5. No further workup from my standpoint is necessary. She may be discharged home at your discretion. Thank you for allowing me to see Selma Arias. If there are any questions, please do not hesitate to call. Ed Higgins DO VGP/es , 03:37 PM , 03:53 PM
== END 2018-06-23 12:22 | disposition home or self-care (01) ==
LOC: NEPD 19:25 → NEDA 19:25 → NEPFCDU 22:47
PROVIDERS: ADMIT Internal Medicine; ATTEND Internal Medicine
DX: Z79.82 Long term (current) use of aspirin; G25.81 Restless legs syndrome; R55 Syncope and collapse; F31.9 Bipolar disorder, unspecified; F12.90 Cannabis use, unspecified, uncomplicated; I38 Endocarditis, valve unspecified; F17.210 Nicotine dependence, cigarettes, uncomplicated; R56.9 Unspecified convulsions; I69.30 Unspecified sequelae of cerebral infarction; Z83.3 Family history of diabetes mellitus; Z95.3 Presence of xenogenic heart valve; I44.1 Atrioventricular block, second degree; I34.0 Nonrheumatic mitral (valve) insufficiency; H54.62 Unqualified visual loss, left eye, normal vision right eye